=== PATIENT | female | born 1960 | race Caucasian/White ===

== ENCOUNTER 2016-05-06 11:00 | Emergency (ER) | payer MEDICARE ==
[~2016-05-06 11:00] MED LIST: /AUGM875TA OR; ACET65TA OR; ASA OR; FLUC10TA OR; LASI40TA OR; LASI80TA OR; LISI20TA5 OR; MYCOSTATIN TOP; NIFEREX PO; NORCO PO; NYSTATIN OINT TOP; POTA10CA2 OR; VITA100T OR
[2016-05-06] MEDS ORDERED: AUGMENTIN 875 MG TAB As Ordered ONE (12:32)
--- NOTE | 2016-05-06 12:48 | EDDOCDS ---
Nurse's Notes [facility] Name: Katy White Age: 55 yrs Sex: Female : 1960 Arrival Date: 05/06/2016 Time: 11:00 Bed TR7 Private MD: Danette Haider NP Diagnosis: Dental root caries;Essential (primary) hypertension Presentation: 05/06 11:08 Presenting complaint: Patient states: Left jaw pain began two days ago. Adult Sepsis mlb1 Screening: The patient does not have new or worsening altered mentation. Patient's respiratory rate is less than 22. Systolic blood pressure is greater than 100. Patient has a qSOFA score of 0- Negative Sepsis Screen. Suicide/Homicide risk assessment- the patient denies having any suicidal and/or homicidal ideations and does not present with any other emotional, behavioral or mental health complaints. 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 Transition of care: patient was not received from another setting of care. 11:08 Acuity: JESSICA Level 5 mlb1 11:08 Method Of Arrival: Walkin/Carried/Asstd mlb1 Triage Assessment: 11:11 General: Appears in no apparent distress, Behavior is appropriate for age, cooperative. mlb1 Pain: Location: left jaw Pain currently is 2 out of 10 on a pain scale. HIV screening NA for this visit Offered previously. 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 omeprazole 20 mg Oral cpDR 1 cap once daily 2. Vitamin B-12 500 mcg Oral tab daily 3. multivitamin Oral tab 2 tab daily 4. Calcarb 600 With Vitamin D 600 mg(1,500mg) -400 unit Oral tab 5. Vitamin D2 oral oral 1 tab once daily - PMHx: GERD; - PSHx: Tonsillectomy; Cataract Surgery; Gastric Bypass; Hysterectomy; - Social history: Smoking status: Patient states was never smoker of tobacco. No barriers to communication noted, The patient speaks fluent Australian, Speaks appropriately for age. - Family history: Not pertinent. - : The pt / caregiver states he / she is not on anticoagulants. Home medication list is obtained from the patient. - Exposure Risk Screening:: None identified. Screenin:19 Screening information is obtained from the patient. Fall risk: No risks identified. mlb1 Assistance ADL's: requires no assistance with activities of daily living. Abuse/DV Screen: The patient / caregiver reports he/she is: not in a situation that causes fear, pain or injury. Nutritional screening: No deficits noted. Advance Directives: Currently, there is no health care proxy. home support is adequate. Assessment: 12:34 General: Appears obese, Behavior is appropriate for age, cooperative. Pain: Location: mlb1 left jaw Pain currently is 2 out of 10 on a pain scale. Neurological: No deficits noted. Respiratory: No deficits noted. Vital Signs: 11:01 BP 161 / 92; Pulse 67; Resp 20; Temp 96.6(O); Pulse Ox 100% on R/A; Height 4 ft. 11 in. elp (149.86 cm) (R); 12:33 BP 178 / 93 RA Sitting (auto/lg); Pulse 68; Resp 16; Temp 96.9(TE); Pulse Ox 100% on rs6 R/A; Pain 3/10; Vitals: 11:01 Log In Time: May 06, 2016 at 11:00. elp ED Course: 11:01 Patient visited by Nahomi Nicole PCA. elp 11:01 Danette Haider is Private Physician. elp 11:01 Patient moved to Waiting elp 11:03 Patient visited by Nahomi Nicole PCA. elp 11:04 Patient moved to Pre RCE elp 11:08 Patient visited by Dalton Galvan RN. mlb1 11:08 Triage Initiated mlb1 11:12 Patient visited by Dalton Galvan RN. mlb1 11:16 Patient moved to Triage 2 ms18 11:20 [facility] jk8 11:20 Coleen Loo MD is Attending Physician. jk8 11:21 Patient visited by Quan Gonzalez PA-C. jk8 12:20 No procedures done that require assistance. mlb1 12:25 Your, Dentist is Referral Physician. jk8 12:34 Patient visited by Lesly Franklin PCA. rs6 12:34 The patient / caregiver is instructed regarding the plan of care and ED course. mlb1 12:45 Patient moved to TR7 mlb1 12:47 Patient visited by Dalton Galvan RN. mlb1 12:47 No IV's were initiated during this patient's visit. mlb1 Administered Medications: 12:33 Drug: Amoxicillin-Clavulanate 1 tabs [amoxicillin 875 mg-potassium clavulanate 125 mg mlb1 tablet (1 tabs)] Route: PO; Order Results: There are currently no results for this order. Outcome: 12:26 Discharge ordered by Provider. jk8 12:46 Discharge Assessment: Patient awake, alert and oriented x 3. No cognitive and/or mlb1 functional deficits noted. Patient verbalized understanding of disposition instructions. patient administered narcotics - no. The following High Risk Discharge criteria are identified: None. Discharged to home ambulatory. Condition: good. Discharge instructions given to patient, Instructed on discharge instructions, follow up and referral plans. medication usage, Demonstrated understanding of instructions, medications, Pt was receptive of discharge instructions/ teaching. Prescriptions given X 2. No special radiology studies were completed. Property sent home with patient. 12:47 Patient left the ED. mlb1 Signatures: Dalton Galvan RN RN mlb1 Nahomi Nicole, UTILITY ASSEMBLER UTILITY ASSEMBLER Isaura Mcdonough RN RN ms18 Lesly Franklin, UTILITY ASSEMBLER UTILITY ASSEMBLER rs6 Quan Gonzalez, PAKartik PAKartik jk8 MTDD
--- NOTE | 2016-05-06 12:48 | EDDOCDS ---
Physician Documentation [facility] Name: Katy White Age: 55 yrs Sex: Female : 1960 Arrival Date: 05/06/2016 Time: 11:00 Bed TR7 Private MD: Danette Haider NP Disposition: 05/06/16 12:26 Discharged to Home/Self Care. Impression: Dental root caries, Essential (primary) hypertension. - Condition is Stable. - Prescriptions for Augmentin 875- 125 mg Oral Tablet - take 1 tablet by ORAL route every 12 hours for 10 days; 20 tablet. magic mouthwash Mucous Membrane Solution - as directed 237 milliliter by ORAL route 4 times per day As needed Magic mouthwash 237mL, gargle, swish, spit, Malox, Liquid Benedryl, Viscous Lidocaine 1 to 1 to 1 ratio.; 200 milliliter. Hydrochlorothiazide 25 mg Oral Tablet - take 1 tablet by ORAL route once daily .; 30 tablet. - Medication Reconciliation, Local Pharmacy Hours form. - Follow up: Emergency Department; When: As needed; Reason: Worsening of conditions. Follow up: Your, Dentist; When: Call to arrange an appointment; Reason: Recheck today's complaints. - Problem is new. - Symptoms have worsened. Historical: - Allergies: Bactrim; - Home Meds: 1. omeprazole 20 mg Oral cpDR 1 cap once daily 2. Vitamin B-12 500 mcg Oral tab daily 3. multivitamin Oral tab 2 tab daily 4. Calcarb 600 With Vitamin D 600 mg(1,500mg) -400 unit Oral tab 5. Vitamin D2 oral oral 1 tab once daily - PMHx: GERD; - PSHx: Tonsillectomy; Cataract Surgery; Gastric Bypass; Hysterectomy; - Social history: Smoking status: Patient states was never smoker of tobacco. No barriers to communication noted, The patient speaks fluent East Timorese, Speaks appropriately for age. - Family history: Not pertinent. - : The pt / caregiver states he / she is not on anticoagulants. Home medication list is obtained from the patient. - Exposure Risk Screening:: None identified. 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 11 in. elp (149.86 cm) (R); 12:33 BP 178 / 93 RA Sitting (auto/lg); Pulse 68; Resp 16; Temp 96.9(TE); Pulse Ox 100% on rs6 R/A; Pain 3/10; MDM: 12:27 Amoxicillin-Clavulanate 875 mg 1 tabs PO once ordered. jk8 Administered Medications: 12:33 Drug: Amoxicillin-Clavulanate 1 tabs [amoxicillin 875 mg-potassium clavulanate 125 mg mlb1 tablet (1 tabs)] Route: PO; Signatures: Dalton Galvan RN RN mlb1 Quan Gonzalez PA-C PAKartik jk8 MTDD
--- NOTE | 2016-05-08 13:48 | EDDOCDS ---
Physician Documentation [facility] Name: Katy White Age: 55 yrs Sex: Female : 1960 Arrival Date: 05/06/2016 Time: 11:00 Bed TR7 Private MD: Danette Haider NP Disposition: 05/06/16 12:26 Discharged to Home/Self Care. Impression: Dental root caries, Essential (primary) hypertension. - Condition is Stable. - Prescriptions for Augmentin 875- 125 mg Oral Tablet - take 1 tablet by ORAL route every 12 hours for 10 days; 20 tablet. magic mouthwash Mucous Membrane Solution - as directed 237 milliliter by ORAL route 4 times per day As needed Magic mouthwash 237mL, gargle, swish, spit, Malox, Liquid Benedryl, Viscous Lidocaine 1 to 1 to 1 ratio.; 200 milliliter. Hydrochlorothiazide 25 mg Oral Tablet - take 1 tablet by ORAL route once daily .; 30 tablet. - Medication Reconciliation, Local Pharmacy Hours form. - Follow up: Emergency Department; When: As needed; Reason: Worsening of conditions. Follow up: Your, Dentist; When: Call to arrange an appointment; Reason: Recheck today's complaints. - Problem is new. - Symptoms have worsened. Historical: - Allergies: Bactrim; - Home Meds: 1. omeprazole 20 mg Oral cpDR 1 cap once daily 2. Vitamin B-12 500 mcg Oral tab daily 3. multivitamin Oral tab 2 tab daily 4. Calcarb 600 With Vitamin D 600 mg(1,500mg) -400 unit Oral tab 5. Vitamin D2 oral oral 1 tab once daily - PMHx: GERD; - PSHx: Tonsillectomy; Cataract Surgery; Gastric Bypass; Hysterectomy; - Social history: Smoking status: Patient states was never smoker of tobacco. No barriers to communication noted, The patient speaks fluent Macanese, Speaks appropriately for age. - Family history: Not pertinent. - : The pt / caregiver states he / she is not on anticoagulants. Home medication list is obtained from the patient. - Exposure Risk Screening:: None identified. 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 11 in. elp (149.86 cm) (R); 12:33 BP 178 / 93 RA Sitting (auto/lg); Pulse 68; Resp 16; Temp 96.9(TE); Pulse Ox 100% on rs6 R/A; Pain 3/10; MDM: 12:27 Amoxicillin-Clavulanate 875 mg 1 tabs PO once ordered. jk8 13:16 [facility] Payment Agreement was scanned into Copytele and attached to record. mm15 13:17 Financial registration complete. mm15 05/07 08:38 T-Sheet-- Draft Copy was scanned into Copytele and attached to record. [facility] Administered Medications: 05/06 12:33 Drug: Amoxicillin-Clavulanate 1 tabs [amoxicillin 875 mg-potassium clavulanate 125 mg mlb1 tablet (1 tabs)] Route: PO; Signatures: Dalton Galvan RN RN mlb1 Marie Nails mm15 Quan Gonzalez PA-C PA-C jk8 Coleen Brown [facility] The chart was reviewed and I authenticate all verbal orders and agree with the evaluation and treatment provided.Attachments: 13:16 [facility] Payment Agreement mm15 05/07 08:38 T-Sheet-- Draft Copy [facility] Chart Complete MTDD
--- NOTE | 2016-05-08 13:48 | EDDOCDS ---
Physician Documentation [facility] [place] Name: Katy White Age: 55 yrs Sex: Female : 1960 Arrival Date: 05/06/2016 Time: 11:00 Bed TR7 Private MD: Danette Haider NP Disposition: 05/06/16 12:26 Discharged to Home/Self Care. Impression: Dental root caries, Essential (primary) hypertension. - Condition is Stable. - Prescriptions for Augmentin 875- 125 mg Oral Tablet - take 1 tablet by ORAL route every 12 hours for 10 days; 20 tablet. magic mouthwash Mucous Membrane Solution - as directed 237 milliliter by ORAL route 4 times per day As needed Magic mouthwash 237mL, gargle, swish, spit, Malox, Liquid Benedryl, Viscous Lidocaine 1 to 1 to 1 ratio.; 200 milliliter. Hydrochlorothiazide 25 mg Oral Tablet - take 1 tablet by ORAL route once daily .; 30 tablet. - Medication Reconciliation, Local Pharmacy Hours form. - Follow up: Emergency Department; When: As needed; Reason: Worsening of conditions. Follow up: Your, Dentist; When: Call to arrange an appointment; Reason: Recheck today's complaints. - Problem is new. - Symptoms have worsened. Historical: - Allergies: Bactrim; - Home Meds: 1. omeprazole 20 mg Oral cpDR 1 cap once daily 2. Vitamin B-12 500 mcg Oral tab daily 3. multivitamin Oral tab 2 tab daily 4. Calcarb 600 With Vitamin D 600 mg(1,500mg) -400 unit Oral tab 5. Vitamin D2 oral oral 1 tab once daily - PMHx: GERD; - PSHx: Tonsillectomy; Cataract Surgery; Gastric Bypass; Hysterectomy; - Social history: Smoking status: Patient states was never smoker of tobacco. No barriers to communication noted, The patient speaks fluent Wallisian, Speaks appropriately for age. - Family history: Not pertinent. - : The pt / caregiver states he / she is not on anticoagulants. Home medication list is obtained from the patient. - Exposure Risk Screening:: None identified. 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 11 in. elp (149.86 cm) (R); 12:33 BP 178 / 93 RA Sitting (auto/lg); Pulse 68; Resp 16; Temp 96.9(TE); Pulse Ox 100% on rs6 R/A; Pain 3/10; MDM: 12:27 Amoxicillin-Clavulanate 875 mg 1 tabs PO once ordered. jk8 13:16 [facility] Payment Agreement was scanned into 1DayLater and attached to record. mm15 13:17 Financial registration complete. mm15 05/07 08:38 T-Sheet-- Draft Copy was scanned into 1DayLater and attached to record. [facility] Administered Medications: 05/06 12:33 Drug: Amoxicillin-Clavulanate 1 tabs [amoxicillin 875 mg-potassium clavulanate 125 mg mlb1 tablet (1 tabs)] Route: PO; Signatures: Dalton Galvan RN RN mlb1 Marie Nails mm15 Quan Gonzalez PA-C PA-C jk8 Coleen Brown [facility] The chart was reviewed and I authenticate all verbal orders and agree with the evaluation and treatment provided.Attachments: 13:16 [facility] Payment Agreement mm15 05/07 08:38 T-Sheet-- Draft Copy [facility] Chart Complete MTDD
--- NOTE | 2016-05-08 13:48 | EDDOCDS ---
Nurse's Notes [facility] Name: Katy White Age: 55 yrs Sex: Female : 1960 Arrival Date: 05/06/2016 Time: 11:00 Bed TR7 Private MD: Danette Haider NP Diagnosis: Dental root caries;Essential (primary) hypertension Presentation: 05/06 11:08 Presenting complaint: Patient states: Left jaw pain began two days ago. Adult Sepsis mlb1 Screening: The patient does not have new or worsening altered mentation. Patient's respiratory rate is less than 22. Systolic blood pressure is greater than 100. Patient has a qSOFA score of 0- Negative Sepsis Screen. Suicide/Homicide risk assessment- the patient denies having any suicidal and/or homicidal ideations and does not present with any other emotional, behavioral or mental health complaints. 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 Transition of care: patient was not received from another setting of care. 11:08 Acuity: JESSICA Level 5 mlb1 11:08 Method Of Arrival: Walkin/Carried/Asstd mlb1 Triage Assessment: 11:11 General: Appears in no apparent distress, Behavior is appropriate for age, cooperative. mlb1 Pain: Location: left jaw Pain currently is 2 out of 10 on a pain scale. HIV screening NA for this visit Offered previously. 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 omeprazole 20 mg Oral cpDR 1 cap once daily 2. Vitamin B-12 500 mcg Oral tab daily 3. multivitamin Oral tab 2 tab daily 4. Calcarb 600 With Vitamin D 600 mg(1,500mg) -400 unit Oral tab 5. Vitamin D2 oral oral 1 tab once daily - PMHx: GERD; - PSHx: Tonsillectomy; Cataract Surgery; Gastric Bypass; Hysterectomy; - Social history: Smoking status: Patient states was never smoker of tobacco. No barriers to communication noted, The patient speaks fluent Tajik, Speaks appropriately for age. - Family history: Not pertinent. - : The pt / caregiver states he / she is not on anticoagulants. Home medication list is obtained from the patient. - Exposure Risk Screening:: None identified. Screenin:19 Screening information is obtained from the patient. Fall risk: No risks identified. mlb1 Assistance ADL's: requires no assistance with activities of daily living. Abuse/DV Screen: The patient / caregiver reports he/she is: not in a situation that causes fear, pain or injury. Nutritional screening: No deficits noted. Advance Directives: Currently, there is no health care proxy. home support is adequate. Assessment: 12:34 General: Appears obese, Behavior is appropriate for age, cooperative. Pain: Location: mlb1 left jaw Pain currently is 2 out of 10 on a pain scale. Neurological: No deficits noted. Respiratory: No deficits noted. Vital Signs: 11:01 BP 161 / 92; Pulse 67; Resp 20; Temp 96.6(O); Pulse Ox 100% on R/A; Height 4 ft. 11 in. elp (149.86 cm) (R); 12:33 BP 178 / 93 RA Sitting (auto/lg); Pulse 68; Resp 16; Temp 96.9(TE); Pulse Ox 100% on rs6 R/A; Pain 3/10; Vitals: 11:01 Log In Time: May 06, 2016 at 11:00. elp ED Course: 11:01 Patient visited by Nahomi Nicole PCA. elp 11:01 Danette Haider is Private Physician. elp 11:01 Patient moved to Waiting elp 11:03 Patient visited by Nahomi Nicole PCA. elp 11:04 Patient moved to Pre RCE elp 11:08 Patient visited by Dalton Galvan RN. mlb1 11:08 Triage Initiated mlb1 11:12 Patient visited by Dalton Galvan RN. mlb1 11:16 Patient moved to Triage 2 ms18 11:20 Quan Gonzalez [facility]. jk8 11:20 Coleen Loo MD is Attending Physician. jk8 11:21 Patient visited by Quan Gonzalez PA-C. jk8 12:20 No procedures done that require assistance. mlb1 12:25 Your, Dentist is Referral Physician. jk8 12:34 Patient visited by Lesly Franklin PCA. rs6 12:34 The patient / caregiver is instructed regarding the plan of care and ED course. mlb1 12:45 Patient moved to TR7 mlb1 12:47 Patient visited by Dalton Galvan RN. mlb1 12:47 No IV's were initiated during this patient's visit. mlb1 13:16 Patient name changed from Katy\S\L\S\Lagray\S\ to Katy\S\Jeremy\S\Lagray. EDMS 13:16 Patient visited by Marie Nails. mm15 13:16 [facility] Payment Agreement was scanned into Bib + Tuck and attached to record. mm15 05/07 08:38 T-Sheet-- Draft Copy was scanned into Bib + Tuck and attached to record. [facility] Administered Medications: 05/06 12:33 Drug: Amoxicillin-Clavulanate 1 tabs [amoxicillin 875 mg-potassium clavulanate 125 mg mlb1 tablet (1 tabs)] Route: PO; Order Results: There are currently no results for this order. Outcome: 12:26 Discharge ordered by Provider. jk8 12:46 Discharge Assessment: Patient awake, alert and oriented x 3. No cognitive and/or mlb1 functional deficits noted. Patient verbalized understanding of disposition instructions. patient administered narcotics - no. The following High Risk Discharge criteria are identified: None. Discharged to home ambulatory. Condition: good. Discharge instructions given to patient, Instructed on discharge instructions, follow up and referral plans. medication usage, Demonstrated understanding of instructions, medications, Pt was receptive of discharge instructions/ teaching. Prescriptions given X 2. No special radiology studies were completed. Property sent home with patient. 12:47 Patient left the ED. mlb1 Signatures: Dispatcher [facility] Dalton Galvan, MAY RN mlb1 Marie Nails mm15 Nahomi Nicole, PLYWOOD MATCHER PLYWOOD MATCHER Isaura Mcdonough RN RN ms18 Lesly Franklin, PLYWOOD MATCHER PLYWOOD MATCHER rs6 Quan Gonzalez, PAKartik PAColeen Ward Chart Complete MTDD
== END 2016-05-06 12:47 | disposition home or self-care (01) ==
LOC: M ED 11:00
DX: I10 Essential (primary) hypertension (principal); K02.9 Dental caries, unspecified; K21.9 Gastro-esophageal reflux disease without esophagitis; Z98.84 Bariatric surgery status; Z90.79 Acquired absence of other genital organ(s); Z90.89 Acquired absence of other organs; Z79.899 Other long term (current) drug therapy; Z88.1 Allergy status to other antibiotic agents

== ENCOUNTER → 2016-07-12 | Outpatient (REF) | payer MEDICARE ==
[2016-07-12 11:57] LABS: MEAN CORPUSCULAR HGB CONC 31.2 g/dl (32.0-36.5); MEAN CORPUSCULAR VOLUME 92.9 fl (80.0-96.0); RED CELL DISTRIBUTION WIDTH 13.6 % (11.5-14.5); WHITE BLOOD COUNT 6.9 K/mm3 (4.0-10.0)
[2016-07-12 12:19] LABS: ALBUMIN 3.7 GM/DL (3.2-5.2); ALBUMIN/GLOBULIN RATIO 1.09 (1.00-1.93); ALKALINE PHOSPHATASE 107 U/L (45-117); ALT/SGPT 21 U/L (12-78); ANION GAP 7 MEQ/L (8-16); AST/SGOT 19 U/L (15-37); BILIRUBIN,TOTAL 0.4 MG/DL (0.2-1.0); BLOOD UREA NITROGEN 20 MG/DL (7-18); CALCIUM LEVEL 8.9 MG/DL (8.5-10.1); CARBON DIOXIDE LEVEL 30 MEQ/L (21-32); CHLORIDE LEVEL 105 MEQ/L (98-107); CHOLESTEROL LEVEL 162 MG/DL (<200); FERRITIN 115 NG/ML (8-252); GLOMERULAR FILTRATION RATE > 60.0 (>51); GLUCOSE, FASTING 87 MG/DL (70-105); POTASSIUM SERUM 4.5 MEQ/L (3.5-5.1); SODIUM LEVEL 142 MEQ/L (136-145); TOTAL PROTEIN 7.1 GM/DL (6.4-8.2); TRIGLYCERIDES LEVEL 92 MG/DL (<150)
[2016-07-12 12:23] LABS: VITAMIN B12 LEVEL 943 PG/ML
[2016-07-12 12:24] LABS: FOLATE > 24.0 NG/ML
== END ==
LOC: M SFHCPLAZ 09:40
PROVIDERS: ATTEND Nurse Practitioner Family
DX: D64.9 Anemia, unspecified (principal); R03.0 Elevated blood-pressure reading, without diagnosis of hypertension; Z98.890 Other specified postprocedural states; E55.9 Vitamin D deficiency, unspecified; Z79.899 Other long term (current) drug therapy

== ENCOUNTER → 2016-07-24 | Outpatient (CLI) | payer MEDICARE ==
[2016-07-24 11:55] LABS: ANION GAP 6 MEQ/L (8-16); BLOOD UREA NITROGEN 18 MG/DL (7-18); CALCIUM LEVEL 8.6 MG/DL (8.5-10.1); CARBON DIOXIDE LEVEL 31 MEQ/L (21-32); CHLORIDE LEVEL 106 MEQ/L (98-107); CREATININE FOR GFR 0.84 MG/DL (0.55-1.02); GLOMERULAR FILTRATION RATE > 60.0 (>51); GLUCOSE, FASTING 89 MG/DL (70-105); POTASSIUM SERUM 4.4 MEQ/L (3.5-5.1); SODIUM LEVEL 143 MEQ/L (136-145)
== END ==
LOC: M LAB 10:47
PROVIDERS: ATTEND Nurse Practitioner Family
DX: I89.0 Lymphedema, not elsewhere classified (principal)

== ENCOUNTER → 2016-11-01 | Outpatient (REF) | payer MEDICARE ==
[2016-11-01 15:46] LABS: ALBUMIN/GLOBULIN RATIO 1.08 (1.00-1.93); ALKALINE PHOSPHATASE 107 U/L (45-117); ALT/SGPT 28 U/L (12-78); ANION GAP 7 MEQ/L (8-16); AST/SGOT 25 U/L (15-37); BILIRUBIN,TOTAL 0.5 MG/DL (0.2-1.0); BLOOD UREA NITROGEN 14 MG/DL (7-18); CALCIUM LEVEL 9.1 MG/DL (8.5-10.1); CARBON DIOXIDE LEVEL 32 MEQ/L (21-32); CHLORIDE LEVEL 103 MEQ/L (98-107); CREATININE FOR GFR 0.92 MG/DL (0.55-1.02); FREE T4 1.08 NG/DL (0.76-1.46); GLOMERULAR FILTRATION RATE > 60.0 (>51); GLUCOSE, FASTING 83 MG/DL (70-105); POTASSIUM SERUM 4.6 MEQ/L (3.5-5.1); SODIUM LEVEL 142 MEQ/L (136-145); TOTAL PROTEIN 7.7 GM/DL (6.4-8.2)
== END ==
LOC: M SFHCPLAZ 13:13
PROVIDERS: ATTEND Nurse Practitioner Family
DX: I89.0 Lymphedema, not elsewhere classified (principal); Z79.899 Other long term (current) drug therapy

== ENCOUNTER → 2017-03-07 | Outpatient (REF) | payer MEDICARE ==
[2017-03-07 12:08] LABS: ALBUMIN 3.7 GM/DL (3.2-5.2); ALBUMIN/GLOBULIN RATIO 1.09 (1.00-1.93); ALKALINE PHOSPHATASE 92 U/L (45-117); ALT/SGPT 19 U/L (12-78); ANION GAP 7 MEQ/L (8-16); AST/SGOT 19 U/L (7-37); BILIRUBIN,TOTAL 0.3 MG/DL (0.2-1.0); BLOOD UREA NITROGEN 17 MG/DL (7-18); CALCIUM LEVEL 9.2 MG/DL (8.5-10.1); CARBON DIOXIDE LEVEL 30 MEQ/L (21-32); CHLORIDE LEVEL 105 MEQ/L (98-107); GLOMERULAR FILTRATION RATE > 60.0 (>51); GLUCOSE, FASTING 95 MG/DL (70-105); POTASSIUM SERUM 4.3 MEQ/L (3.5-5.1); SODIUM LEVEL 142 MEQ/L (136-145); TOTAL PROTEIN 7.1 GM/DL (6.4-8.2)
== END ==
LOC: M SFHCPLAZ 09:17
PROVIDERS: ATTEND Nurse Practitioner Family
DX: I89.0 Lymphedema, not elsewhere classified (principal); E55.9 Vitamin D deficiency, unspecified

== ENCOUNTER → 2017-09-25 | Outpatient (REF) | payer MEDICARE ==
[2017-09-25 10:40] LABS: TOTAL 25(OH) VITAMIN D 36.5 NG/ML (30.0-100.0)
[2017-09-25 10:51] LABS: ALBUMIN/GLOBULIN RATIO 1.11 (1.00-1.93); ALKALINE PHOSPHATASE 115 U/L (45-117); ALT/SGPT 22 U/L (12-78); ANION GAP 8 MEQ/L (8-16); AST/SGOT 19 U/L (7-37); BILIRUBIN,TOTAL 0.3 MG/DL (0.2-1.0); BLOOD UREA NITROGEN 19 MG/DL (7-18); CALCIUM LEVEL 9.1 MG/DL (8.5-10.1); CARBON DIOXIDE LEVEL 30 MEQ/L (21-32); CHLORIDE LEVEL 106 MEQ/L (98-107); CREATININE FOR GFR 0.94 MG/DL (0.55-1.30); GLOMERULAR FILTRATION RATE > 60.0 (>51); GLUCOSE, FASTING 90 MG/DL (70-100); POTASSIUM SERUM 4.5 MEQ/L (3.5-5.1); SODIUM LEVEL 144 MEQ/L (136-145); TOTAL PROTEIN 7.6 GM/DL (6.4-8.2)
== END ==
LOC: M SFHCPLAZ 08:38
DX: I89.0 Lymphedema, not elsewhere classified (principal); E55.9 Vitamin D deficiency, unspecified
CPT/HCPCS: 80053

== ENCOUNTER → 2018-04-18 | Outpatient (REF) | payer MEDICARE ==
[2018-04-18 11:16] LABS: BLOOD UREA NITROGEN 17 MG/DL (7-18); CALCIUM LEVEL 9.2 MG/DL (8.5-10.1); CARBON DIOXIDE LEVEL 28 MEQ/L (21-32); CHLORIDE LEVEL 107 MEQ/L (98-107); CREATININE FOR GFR 0.94 MG/DL (0.55-1.30); GLOMERULAR FILTRATION RATE > 60.0 (>51); GLUCOSE, FASTING 92 MG/DL (70-100); POTASSIUM SERUM 4.4 MEQ/L (3.5-5.1); SODIUM LEVEL 142 MEQ/L (136-145)
[2018-04-18 11:28] LABS: TOTAL 25(OH) VITAMIN D 45.1 NG/ML (30.0-100.0)
== END ==
LOC: M SFHCPLAZ 08:43
PROVIDERS: ATTEND Nurse Practitioner Family
DX: I89.0 Lymphedema, not elsewhere classified (principal); E55.9 Vitamin D deficiency, unspecified

== ENCOUNTER → 2018-04-26 | Outpatient (REF) | payer MEDICARE ==
[2018-04-26 19:07] LABS: IRON (FE) 41 UG/DL (50-170)
[2018-04-26 19:19] LABS: VITAMIN B12 LEVEL 1083 PG/ML (247-911)
[2018-05-01 08:06] LABS: VITAMIN E(ALPHA TOCOPHEROL) 13.5 mg/L (7.0-25.1)
[2018-05-02 00:07] LABS: VITAMIN A, RETINOL LEVEL 61.6 ug/dL (20.1-62.0); VITAMIN C, ASCORBIC ACID 0.8 mg/dL (0.2-2.0); VITAMIN K1 0.19 ng/mL (0.13-1.88)
== END ==
LOC: M SFHCPLAZ 15:43
PROVIDERS: ATTEND Nurse Practitioner Family
DX: E50.9 Vitamin A deficiency, unspecified (principal); Z98.890 Other specified postprocedural states
CPT/HCPCS: 36415; 82180; 82607; 83540; 84425; 84446; 84590; 84597; 84630; G0463

== ENCOUNTER → 2018-07-11 | Outpatient (REF) | payer MEDICARE ==
[2018-07-11 14:55] LABS: ALBUMIN 3.7 GM/DL (3.2-5.2); ALT/SGPT 25 U/L (12-78); BILIRUBIN,TOTAL 0.4 MG/DL (0.2-1.0); BLOOD UREA NITROGEN 18 MG/DL (7-18); CALCIUM LEVEL 9.3 MG/DL (8.5-10.1); CARBON DIOXIDE LEVEL 33 MEQ/L (21-32); CHLORIDE LEVEL 103 MEQ/L (98-107); CREATININE FOR GFR 0.87 MG/DL (0.55-1.30); GLOMERULAR FILTRATION RATE > 60.0 (>51); GLUCOSE, FASTING 87 MG/DL (70-100); POTASSIUM SERUM 3.9 MEQ/L (3.5-5.1); SODIUM LEVEL 141 MEQ/L (136-145); TOTAL PROTEIN 7.4 GM/DL (6.4-8.2)
[2018-07-11 15:03] LABS: TOTAL 25(OH) VITAMIN D 57.5 NG/ML (30.0-100.0)
[2018-07-11 15:04] LABS: FOLATE > 24.0 NG/ML; VITAMIN B12 LEVEL 1154 PG/ML
== END ==
LOC: M SFHCPLAZ 10:51
PROVIDERS: ATTEND Nurse Practitioner Family
DX: I89.0 Lymphedema, not elsewhere classified (principal); E55.9 Vitamin D deficiency, unspecified; E50.9 Vitamin A deficiency, unspecified

== ENCOUNTER → 2018-07-18 | Outpatient (REF) | payer MEDICARE ==
[2018-07-23 00:08] LABS: VITAMIN A, RETINOL LEVEL 61.6 ug/dL (20.1-62.0); VITAMIN B1 LEVEL WHOLE BLOOD 146.9 nmol/L (66.5-200.0)
== END ==
LOC: M SFHCPLAZ 12:33
PROVIDERS: ATTEND Nurse Practitioner Family
DX: E50.9 Vitamin A deficiency, unspecified (principal); Z98.890 Other specified postprocedural states
CPT/HCPCS: 36415; 84425; 84590; G0463

== ENCOUNTER 2018-07-23 23:49 | Emergency (ER) | payer MEDICARE ==
[~2018-07-23] VITALS: Ht 144.8 cm; Wt 160.4 kg
[2018-07-24 01:42] LABS: BASO % 0.4 % (0.0-1.0); EOS # 0.2 10^3/uL (0.0-0.50); EOS % 1.7 % (0.0-3.0); HEMATOCRIT 34.8 % (36.0-47.0); HEMOGLOBIN 10.6 g/dl (12.0-15.5); LYMPH # 0.8 10^3/uL (1.5-4.5); MEAN CORPUSCULAR HEMOGLOBIN 28.3 pg (27.0-33.0); MEAN CORPUSCULAR HGB CONC 30.5 g/dl (32.0-36.5); MONO # 0.6 10^3/uL (0.0-0.8); MONO % 6.3 % (0.0-5.0); NEUTROPHILS # 7.7 10^3/uL (1.8-7.7); NEUTROPHILS % 82.3 % (36.0-66.0); PLATELET COUNT, AUTOMATED 319 10^3/uL (150-450); RED BLOOD COUNT 3.74 10^6/uL (4.00-5.40); WHITE BLOOD COUNT 9.3 10^3/uL (4.0-10.0)
[2018-07-24 02:17] LABS: ALBUMIN 3.5 GM/DL (3.2-5.2); ALT/SGPT 37 U/L (12-78); BILIRUBIN,TOTAL 0.2 MG/DL (0.2-1.0); BLOOD UREA NITROGEN 22 MG/DL (7-18); CALCIUM LEVEL 8.5 MG/DL (8.5-10.1); CARBON DIOXIDE LEVEL 33 MEQ/L (21-32); CHLORIDE LEVEL 106 MEQ/L (98-107); CREATININE FOR GFR 0.94 MG/DL (0.55-1.30); GLOMERULAR FILTRATION RATE > 60.0 (>51); GLUCOSE, FASTING 118 MG/DL (70-100); POTASSIUM SERUM 4.3 MEQ/L (3.5-5.1); SODIUM LEVEL 143 MEQ/L (136-145); TOTAL PROTEIN 6.8 GM/DL (6.4-8.2)
[2018-07-24] MEDS ORDERED: NS 1,000 ML IV ONE (02:30)
--- NOTE | 2018-07-24 03:21 | REPVR ---
EXAM: CT Head Without Contrast EXAM DATE/TIME: 07/24/2018 2:16 AM CLINICAL HISTORY: 57 years old, female; Signs and symptoms; Dizziness; Additional info: Syncope TECHNIQUE: Imaging protocol: Axial computed tomography images of the head/brain without contrast. Radiation optimization: All CT scans at this facility use at least one of these dose optimization techniques: automated exposure control; mA and/or kV adjustment per patient size (includes targeted exams where dose is matched to clinical indication); or iterative reconstruction. COMPARISON: No relevant prior studies available. FINDINGS: Brain: There are several slightly dense extra-axial nodular lesions which likely reflect meningiomas. There is a rounded area the paramedian left parietal lobe question of a meningioma in the right parietal region. There is focal prominence adjacent to the sagittal sinus posteriorly and at the confluence of the tentorium and posterior falx. Ventricles: Normal. No ventriculomegaly. Bones/joints: Unremarkable. No acute fracture. Sinuses: Mild left maxillary sinus mucosal thickening. Mastoid air cells: Visualized mastoid air cells are unremarkable. No mastoid effusion. Soft tissues: Unremarkable. IMPRESSION: 1. Probable multiple small meningiomas. 2. Mild left maxillary sinus disease. 3. Otherwise negative noncontrast head CT. Electronically signed by: Abram Ahumada On 07/24/2018 03:21:04 AM
[2018-07-24 03:49] LABS: CPK CREATINE PHOSPHOKINASE 61 U/L (26-192); FREE T4 1.18 NG/DL (0.76-1.46); MB/CK RELATIVE INDEX 3.44 (< OR =4); TROPONIN I 0.04 NG/ML (< 0.10)
[2018-07-24] MEDS ORDERED: dexameTHASONE 20 MG/5 ML VIAL (J1100) IV ONE (04:45)
--- NOTE | 2018-07-24 06:44 | ECGEPIP ---
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
[2018-07-24 07:47] VITALS: BP 146/70
--- NOTE | 2018-07-24 07:57 | REP ---
Portable chest x-ray: Single view. History: Syncope. Comparison study: September 15, 2011. Findings: EKG monitoring electrodes overlie the chest. The lungs are well inflated and clear. Right hemidiaphragm is elevated. Heart size is borderline. Pulmonary vasculature is somewhat cephalized. Impression: Elevated right hemidiaphragm. Borderline heart size and pulmonary vascular cephalization. Electronically Signed by Justin Alfaro MD 07/24/2018 07:48 A
== END 2018-07-24 07:52 | disposition short-term general hospital (02) ==
LOC: M ED 23:49
DX: D32.0 Benign neoplasm of cerebral meninges (principal); R55 Syncope and collapse; I45.10 Unspecified right bundle-branch block; Z98.0 Intestinal bypass and anastomosis status; Z86.39 Personal history of other endocrine, nutritional and metabolic disease
CPT/HCPCS: 70450; 71045; 80053; 82550; 82553; 84439; 84443; 84484; 85025; 93005; 96374; 99285; J1100

== ENCOUNTER 2018-09-02 00:02 | Emergency (ER) | payer MEDICARE ==
[~2018-09-02] VITALS: Ht 157.5 cm; Wt 160.4 kg
[2018-09-02] MEDS ORDERED: levETIRAcetam INJection 1,000 MG in D5W 100 ML IV ONE (00:30)
[2018-09-02 00:31] VITALS: BP 133/60
[2018-09-02] MEDS ORDERED: LEVE10003 (00:31)
== END 2018-09-02 01:55 | disposition home or self-care (01) ==
LOC: M ED 00:02
DX: G40.909 Epilepsy, unspecified, not intractable, without status epilepticus (principal); B88.8 Other specified infestations; I10 Essential (primary) hypertension; D64.9 Anemia, unspecified; I89.0 Lymphedema, not elsewhere classified; E66.8 Other obesity; Z79.899 Other long term (current) drug therapy; Z88.2 Allergy status to sulfonamides; Z88.8 Allergy status to other drugs, medicaments and biological substances
CPT/HCPCS: 96374; 99284; J1953

== ENCOUNTER 2018-09-07 11:03 | Emergency (ER) | payer MEDICARE ==
[~2018-09-07] VITALS: Ht 157.5 cm; Wt 160.4 kg
[~2018-09-07 11:03] MED LIST changes: +LEVE10003
[2018-09-07] MEDS ORDERED: VITA500045 (11:24)
[2018-09-07] MEDS ORDERED: VITA80003 (11:24)
[2018-09-07] MEDS ORDERED: OMEP-218 (11:24)
[2018-09-07] MEDS ORDERED: POTA20TA6 (11:24)
[2018-09-07] MEDS ORDERED: LATA0.0015 (11:24)
[2018-09-07 12:02] LABS: BASO % 0.5 % (0.0-1.0); EOS # 0.2 10^3/uL (0.0-0.50); EOS % 2.3 % (0.0-3.0); HEMOGLOBIN 11.8 g/dl (12.0-15.5); LYMPH % 12.9 % (24.0-44.0); MEAN CORPUSCULAR HEMOGLOBIN 29.1 pg (27.0-33.0); MEAN CORPUSCULAR HGB CONC 31.9 g/dl (32.0-36.5); MEAN CORPUSCULAR VOLUME 91.1 fl (80.0-96.0); MONO # 0.6 10^3/uL (0.0-0.8); MONO % 7.9 % (0.0-5.0); NEUTROPHILS % 76.1 % (36.0-66.0); PLATELET COUNT, AUTOMATED 323 10^3/uL (150-450); RED BLOOD COUNT 4.06 10^6/uL (4.00-5.40); WHITE BLOOD COUNT 7.9 10^3/uL (4.0-10.0)
[2018-09-07 12:24] LABS: INR 0.99; PROTHROMBIN TIME 13.2 SECONDS (12.1-14.4)
[2018-09-07 12:25] LABS: PARTIAL THROMBOPLASTIN TIME 30.4 SECONDS (25.4-37.6)
[2018-09-07 12:35] LABS: BLOOD UREA NITROGEN 17 MG/DL (7-18); CALCIUM LEVEL 8.8 MG/DL (8.5-10.1); CARBON DIOXIDE LEVEL 31 MEQ/L (21-32); CHLORIDE LEVEL 106 MEQ/L (98-107); CPK CREATINE PHOSPHOKINASE 60 U/L (26-192); CREATININE FOR GFR 0.92 MG/DL (0.55-1.30); FREE T4 1.09 NG/DL (0.76-1.46); GLOMERULAR FILTRATION RATE > 60.0 (>51); GLUCOSE, FASTING 98 MG/DL (70-100); MAGNESIUM LEVEL 2.5 MG/DL (1.8-2.4); POTASSIUM SERUM 3.7 MEQ/L (3.5-5.1); SODIUM LEVEL 142 MEQ/L (136-145); TROPONIN I 0.04 NG/ML (< 0.10)
--- NOTE | 2018-09-07 12:43 | REP ---
REASON FOR EXAM: Recent seizure activity with known meningiomas. COMPARISON EXAM: Last month on the 3rd. There is no change from the prior exam. Parafalcine densities are noted status quo consistent with meningiomas. Paradural densities particularly at the convexities are again noted and unchanged. No new abnormal parenchymal or paraparenchymal densities have developed. There is no shift of the midline structures. The ventricles and sulci are within normal limits and unchanged. The posterior fossa is within normal limits and unchanged. The imaged paranasal sinuses and mastoid air cells are clear. IMPRESSION: Densities as described above are completely unchanged. Electronically Signed by Tay Ross DO 09/07/2018 01:21 P
--- NOTE | 2018-09-07 13:21 | REP ---
HISTORY: Dizziness. COMPARISON: 07/24/2018, a portable exam. FINDINGS: The technique utilized in obtaining the radiograph has magnified the cardiac silhouette and accentuated the interstitial markings. AP and lateral views were obtained. There is persistent elevation of the diaphragmatic surface of the right lung, status quo. The superior mediastinal structures are midline. The cardiac silhouette is unremarkable in size, shape and position. The diaphragmatic surfaces of the lungs are regular and the costophrenic angles are clear. The pulmonary xiao are clear. The imaged osseous structures are intact. IMPRESSION: There is no acute cardiopulmonary disease. Electronically Signed by Tay Ross DO 09/07/2018 01:22 P
[2018-09-07 14:16] VITALS: BP 127/78
--- NOTE | 2018-09-07 17:57 | ECGEPIP ---
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
== END 2018-09-07 14:29 | disposition home or self-care (01) ==
LOC: EDBD 11:03 → M ED 11:03
DX: R42 Dizziness and giddiness (principal); R56.9 Unspecified convulsions; I10 Essential (primary) hypertension; G47.33 Obstructive sleep apnea (adult) (pediatric); E55.9 Vitamin D deficiency, unspecified; I73.9 Peripheral vascular disease, unspecified; M54.5 Low back pain; E66.9 Obesity, unspecified; Z98.84 Bariatric surgery status; K75.9 Inflammatory liver disease, unspecified; D32.9 Benign neoplasm of meninges, unspecified; H54.7 Unspecified visual loss; Z79.899 Other long term (current) drug therapy; Z88.2 Allergy status to sulfonamides

== ENCOUNTER → 2018-10-04 | Outpatient (CLI) | payer MEDICARE ==
[~2018-10-04] MED LIST changes: +LATA0.0015; +OMEP-218; +POTA20TA6; +VITA500045; +VITA80003
--- NOTE | 2018-10-04 18:49 | REP ---
CAROTID ULTRASOUND: Real-time ultrasound evaluation and duplex Doppler interrogation of the extracranial carotid vasculature is performed. There is mild to moderate plaquing and narrowing in both carotid bulbs extending into the internal and external carotid arteries. Luminal narrowing is less than 50%. There is no evidence of hemodynamically significant stenosis of either internal carotid artery. Normal flow velocities are seen. The vertebral arteries demonstrate normal direction of flow. RIGHT LEFT Peak systolic velocity ICA 63.8 cm/s 112.6 cm/s End diastolic velocity ICA 15.4 cm/s 18.1 cm/s Peak systolic velocity CCA 108.6 cm/s 99.3 cm/s Peak systolic velocity ECA 55.1 cm/s 76.3 cm/s ICA/CCA ratio 0.59 1.13 IMPRESSION: Bilateral luminal narrowing of the internal carotid arteries less than 50%. No evidence of hemodynamically significant stenosis. Electronically Signed by Nadeem James MD 10/04/2018 06:41 P
== END ==
LOC: M RAD 17:27
PROVIDERS: ATTEND Nurse Practitioner Family
DX: R55 Syncope and collapse (principal)

== ENCOUNTER 2018-11-21 15:37 | Observation (INO) | payer MEDICARE ==
[~2018-11-21] VITALS: Ht 157.5 cm; Wt 159.3 kg
[~2018-11-21 15:37] MED LIST changes: -LEVE10003; +LEVE10003 PO; -OMEP-218; +OMEP-218 PO; -POTA20TA6; +POTA20TA6 PO; -VITA500045; +VITA500045 PO; -VITA80003; +VITA80003 PO
[2018-11-21] MEDS ORDERED: NS 1,000 ML IV ONE (16:00)
[2018-11-21 16:06] LABS: BASO # 0.1 10^3/uL (0.0-0.2); BASO % 0.7 % (0.0-1.0); EOS # 0.2 10^3/uL (0.0-0.50); EOS % 1.8 % (0.0-3.0); HEMOGLOBIN 11.9 g/dl (12.0-15.5); LYMPH # 1.2 10^3/uL (1.5-4.5); LYMPH % 13.4 % (24.0-44.0); MEAN CORPUSCULAR HEMOGLOBIN 27.7 pg (27.0-33.0); MEAN CORPUSCULAR HGB CONC 30.5 g/dl (32.0-36.5); MEAN CORPUSCULAR VOLUME 90.7 fl (80.0-96.0); MONO # 0.7 10^3/uL (0.0-0.8); MONO % 7.9 % (0.0-5.0); NEUTROPHILS # 6.9 10^3/uL (1.8-7.7); NEUTROPHILS % 75.9 % (36.0-66.0); PLATELET COUNT, AUTOMATED 300 10^3/uL (150-450)
[2018-11-21 16:25] LABS: INR 1.16; PARTIAL THROMBOPLASTIN TIME 29.4 SECONDS (25.0-38.4); PROTHROMBIN TIME 14.5 SECONDS (11.8-14.0)
--- NOTE | 2018-11-21 16:34 | REP ---
Clinical: Chest pain. Comparison: 09/07/2018. Findings: Stable elevation to the right hemidiaphragm is again noted. Mediastinum and cardiac silhouette are stable. No acute consolidation, effusion, or pneumothorax. Skeletal structures intact. Impression: Stable chest x-ray. No acute cardiopulmonary process. Electronically Signed by Jeanmarie Varela MD 11/21/2018 04:26 P
[2018-11-21 16:43] LABS: CALCIUM LEVEL 8.7 MG/DL (8.5-10.1); CK-MB VALUE MASS 3.7 NG/ML (<3.6); CREATININE FOR GFR 1.06 MG/DL (0.55-1.30); GLOMERULAR FILTRATION RATE 57.1 (>51); MB/CK RELATIVE INDEX 3.3 (< OR =4); POTASSIUM SERUM 4.5 MEQ/L (3.5-5.1); TROPONIN I 0.05 NG/ML (< 0.10)
[2018-11-21] MEDS ORDERED: NYST10CR TOP (16:46)
[2018-11-21] MEDS ORDERED: CALC600T5 PO (16:46)
[2018-11-21] MEDS ORDERED: CYAN100049 PO (16:46)
[2018-11-21] MEDS ORDERED: THIA100T7 PO (16:46)
[2018-11-21] MEDS ORDERED: FURO40TA2 PO (16:46)
[2018-11-21] MEDS ORDERED: ACET-683 PO (16:46)
[2018-11-21] MEDS ORDERED: VITMTA PO (16:46)
[2018-11-21] MEDS ORDERED: D5W/LR 1,000 ML IV ONE (18:45)
--- NOTE | 2018-11-21 19:31 | CR ---
DATE OF CONSULTATION: 11/21/2018 CONSULTATION REPORT FOR: Dr. Jesse Nolasco REASON FOR CONSULTATION: Complete heart block associated with right bundle branch block (RBBB) and recurrent syncope. HISTORY OF PRESENT ILLNESS: Katy White is a 58-year-old woman with known right bundle branch block who has been having recurrent syncope in the past few months. She was having some chest discomfort earlier today and presented to the emergency room. She was found to be in complete heart block with right bundle branch block with rates in the low 30s. She reports she has had recurrent syncope in the past few months but none today. She has recurrent dizziness/lightheadedness. She is quite sedentary. She is not bothered by any dyspnea with her ordinary activities of daily living. She is quite vague with regards to chest discomfort but states it is not present currently. No palpitations. No prior strokes or embolic events. She has recently been diagnosed with meningiomas. No intermittent claudication. No peripheral edema. ADVERSE DRUG REACTIONS: BACTRIM. MEDICATIONS PRIOR TO ADMISSION: - Tylenol - vitamin D - furosemide 40 mg daily - latanoprost 0.005% - Mycostatin three times a day - omeprazole - potassium chloride - vitamin A - vitamin B12 1000 mcg daily - levetiracetam cream OTHER PAST MEDICAL AND SURGICAL HISTORY: 1. Glaucoma. 2. Systemic hypertension. 3. Right bundle branch block. 4. Obstructive sleep apnea on continuous positive airway pressure (CPAP). 5. No diabetes. 6. Gastroesophageal reflux disease (GERD). 7. History of hepatitis with jaundice during childhood. 8. No chronic kidney disease. 9. Meningiomas. 10. Tonsillectomy during childhood. 11. Previous gastric bypass. 12. Hysterectomy. 13. Bilateral cataract extractions with lens implants. FAMILY HISTORY: Noncontributory. SOCIAL HISTORY: Nonsmoker. No alcohol. No psychiatric problems. Disabled. . Resident of [place]. REVIEW OF SYSTEMS: As per history of present illness (HPI) above. No anxiety, panic attacks, or depression. Occasional low back pain. The patient is legally blind. PHYSICAL EXAMINATION: Pleasant, woman who appears her chronologic age, who is not in any respiratory or psychological distress. Morbidly obese. Pulse 29, blood pressure 150/65 right arm supine, oxygen saturation 96% on room air. Temperature 95.9 (oral). Height 62 inches. Weight 158.2 kg, body mass index (BMI) 63.8. Oral mucosa is moist without pallor or cyanosis. No conjunctival pallor, scleral icterus, or xanthomas. Jugular venous pulsations were at 2 cm. Trachea midline. No palpable thyroid. No clubbing, nailbed stenosis or splinter hemorrhages. No skin pallor or icterus. No skin lesions seen. However, the patient is on precautions for a diagnosis of bedbugs. Oriented to person, place and time. Mood and affect are normal. Curvature of the spine normal. Gait was not appropriate to test at this time as the patient is on bedrest awaiting a pacemaker because of complete heart block. Gross motor strength and tone were normal. No abnormal muscle atrophy, fasciculations, or tremors. Respiratory expansion effort was good. No crackles or wheezes. No palpable apex beat. No parasternal lifts, heaves, thrills, or palpable heart sounds. First heart sounds diminished and second heart sounds were diminished and mildly split. No S3, S4 or murmurs appreciated. Carotids were normal in volume and contour and without bruits. No palpable abdominal aorta. No abdominal bruits. Femoral pulses difficult to palpate due to abdominal obesity. Pedal pulses normal. Legs were obese and appear to have lymphedema. No varicose veins. Pedal pulses normal. Abdomen was obese, soft, nontender with normal bowel sounds. Difficult to assess liver span due to abdominal obesity. No hepatosplenomegaly or organomegaly. Stool for occult blood not previously indicated. LABORATORY WORK: 11/21/2018 shows WBC 9.9, hemoglobin 11.9, hematocrit 39.0, platelets 300. PT/INR 1.16. Sodium 143, potassium 4.5, chloride 104, CO2 32, BUN 19, creatinine 1.06, estimated GFR 57.1, glucose 89, CPK 112, CK-MB 3.7, troponin I 0.05. Electrocardiogram 11/21/2018 at 1547 shows sinus rhythm with complete heart block, right bundle branch block, prolonged QTc, low voltages, nonspecific T wave abnormalities. Abnormal ECG. I have independently visualized the patient's portable AP chest x-ray acquired 11/21/2018. Elevation of the right hemidiaphragm. Difficult to assess for cardiomegaly given the portable technique. No pulmonary vascular distribution. No interstitial or alveolar edema. No acute cardiopulmonary process. ASSESSMENT AND PLAN: 1. Complete heart block. The patient is symptomatic with recurrent syncope. She has associated preexisting right bundle branch block. She meets criteria for implantation of a permanent dual-chamber pacemaker. Implantation of dual-chamber pacemaker was explained to the patient. Risks of pacemaker implantation were explained to the patient including, but not all inclusive: Infection (1%), pneumothorax (1%), bleeding, adverse drug reaction, poor wound healing, lead dislodgment, cardiac arrhythmias, and cardiac perforation with cardiac tamponade (06/999). The patient is agreeable and signed the consent form. The plan will be to go to the operating room for implantation of a permanent dual-chamber pacemaker when the operating room (OR) becomes available this evening. The option of no pacemaker was explained to the patient which I explained was not a good option because of risk of recurrent syncope and its consequences including bodily harm as well as increased risk for sudden cardiac . 2. Recurrent syncope. Syncope secondary to complete heart block. As discussed above, she will undergo implantation of a permanent dual-chamber pacemaker. 3. Right bundle branch block (chronic). Her right bundle branch block is now associated with complete heart block. She will undergo permanent pacemaker implantation later tonight. 4. Systemic hypertension. Blood pressure reasonably controlled for her slow heart rate. We will observe in the hospital and medication adjustments will be made as needed. With regards to the patient's other medical problems, she will be admitted under the hospitalist service and they will look after any other medical problems that she has including but not limited to bedbugs, obesity, and obstructive sleep apnea.
[2018-11-21] MEDS ORDERED: CALCIUM CARBONATE 500 MG CHEW U/D PO PRN (21:30)
--- NOTE | 2018-11-21 21:45 | HPEPDOC ---
General Date of Admission 11.21.18 Date of Service: Nov 21, 2018 Chief Complaint The patient is a 58-year-old female admitted with a reason for visit of Complete Heart Block. History of Present Illness 58f hx of rosalie, obesity, gastric bypass, RBBB, meningioma, syncope found to have complete heart block. Pt has had episodes of syncope in the past few months. this has been attributed to meningiomas and possible seizures. today she was at her pmd for a routine visit when she was noted to be severely bradycardic. She denies chest pain or dizziness. Does occasionally get sob with exertion. She has also had an issue with bed bugs. She denies any painful or itchy bites. a full ROS was performed and negative except as above Home Medications Scheduled Calcium Carbonate (Calcium) 600 Mg Tablet, 600 MG PO BID, (Reported) Cyanocobalamin (Vitamin B-12) (Vitamin B-12) 1,000 Mcg Tablet, 1,000 MCG PO Q2D, (Reported) Ergocalciferol (Vitamin D2) (Vitamin D2) 50,000 Unit Capsule, 50,000 UNITS PO Q2WK, (Reported) EVERY OTHER SUNDAY Furosemide (Furosemide) 40 Mg Tablet, 40 MG PO Q2D, (Reported) Furosemide (Furosemide) 40 Mg Tablet, 80 MG PO Q2D, (Reported) Multivitamins (Thera M Plus Tablet) 1 Each Tablet, 1 TAB PO DAILY, (Reported) Omeprazole (Omeprazole) 20 Mg Capsule.dr, 20 MG PO DAILY, (Reported) Potassium Chloride (Potassium Chloride) 20 Meq Tab.er.prt, 20 MEQ PO DAILY, (Reported) Thiamine HCl (Thiamine HCl) 100 Mg Tablet, 100 MG PO Q2D, (Reported) Vitamin A (Vitamin A) 8,000 Unit Capsule, 8,000 UNIT PO Q2D, (Reported) levETIRAcetam (levETIRAcetam) 1,000 Mg Tablet, 1,000 MG PO BID, (Reported) Scheduled PRN Acetaminophen (Acetaminophen) 500 Mg Tablet, 1,000 MG PO Q6H PRN for PAIN, (Reported) Nystatin (Nystatin) 15 Gm Cream..g., 1 APLCT TOP TID PRN for RASH/ITCHING, (Reported) apply to affected area(s) Allergies Coded Allergies: sulfamethoxazole (Verified Allergy, Intermediate, RASH, 09/07/18) trimethoprim (Verified Allergy, Intermediate, RASH, 09/07/18) Past Medical History Medical History ROSALIE Surgical History gastric bypass Social History * Smoker: Denies Alcohol: Denies Drugs: denies A-FIB/CHADSVASC A-FIB History Current/History of A-Fib/PAF?: No Current PO Anticoag Therapy: No Age/Risk Factor Scoring CHADSVASC: CHADSVASC Response (Comments) Value Age Risk Factor Age < 65 years old 0 Gender Risk Factor Female 1 Hx of CHF No 0 Hx of HTN No 0 Hx of Stroke/TIA/or VTE No 0 Hx of Diabetes No 0 Hx of Vascular Disease No 0 Total 1 Treatment Treatment ordered: NONE Reason Anticoagulant not given: Not indicated/[id number] Physical Examination General Exam: Positive: Alert, Cooperative, No Acute Distress Eye Exam: Positive: Other Eye Symptoms Neck Exam: Positive: Supple; Negative: JVD, thyromegaly Chest Exam: Positive: Clear to auscultation, Normal air movement Heart Exam: Positive: Rate Normal, Regular Rhythm, Normal S1, Normal S2; Negative: Murmurs, Rubs Abdomen Exam: Positive: Normal bowel sounds, Soft; Negative: Tenderness, Hepatospenomegaly Extremity Exam: Positive: Normal pulses; Negative: Clubbing, Cyanosis, Edema Skin Exam: Positive: Other skin issue (chronic skin changes) Neuro Exam: Positive: Normal Gait, Normal Speech, Cranial Nerves 3-12 NL, Reflexes 2+ Psych Exam: Positive: Mental status NL, Mood NL, Oriented x 3 Vital Signs Vital Signs Date Time Temp Pulse Resp B/P (MAP) Pulse Ox O2 Delivery O2 Flow Rate FiO2 11/21/18 21:06 31 93 11/21/18 21:00 182/72 (108) 11/21/18 20:30 18 11/21/18 18:45 Room Air 11/21/18 16:16 95.9 Laboratory Data Labs 24H Laboratory Tests 2 11/21/18 15:49: Immature Granulocyte % (Auto) 0.3, White Blood Count 9.0, Red Blood Count 4.30, Hemoglobin 11.9L, Hematocrit 39.0, Mean Corpuscular Volume 90.7, Mean Corpuscular Hemoglobin 27.7, Mean Corpuscular Hemoglobin Concent 30.5L, Red Cell Distribution Width 16.1H, Platelet Count 300, Neutrophils (%) (Auto) 75.9H, Lymphocytes (%) (Auto) 13.4L, Monocytes (%) (Auto) 7.9H, Eosinophils (%) (Auto) 1.8, Basophils (%) (Auto) 0.7, Neutrophils # (Auto) 6.9, Lymphocytes # (Auto) 1.2L, Monocytes # (Auto) 0.7, Eosinophils # (Auto) 0.2, Basophils # (Auto) 0.1, Nucleated Red Blood Cells % (auto) 0.0, Prothrombin Time 14.5H, Prothromb Time International Ratio 1.16, Activated Partial Thromboplast Time 29.4, Anion Gap 7L, Glomerular Filtration Rate 57.1, Blood Urea Nitrogen 19H, Creatinine 1.06, Sodium Level 143, Potassium Level 4.5, Chloride Level 104, Carbon Dioxide Level 32, Calcium Level 8.7, Total Creatine Kinase 112, Creatine Kinase MB 3.7H, Creatine Kinase MB Relative Index 3.30, Troponin I 0.05 CBC/BMP Laboratory Tests 11/21/18 15:49 Red Blood Count 4.30, Mean Corpuscular Volume 90.7, Mean Corpuscular Hemoglobin 27.7, Mean Corpuscular Hemoglobin Concent 30.5 L, Red Cell Distribution Width 16.1 H, Neutrophils (%) (Auto) 75.9 H, Lymphocytes (%) (Auto) 13.4 L, Monocytes (%) (Auto) 7.9 H, Eosinophils (%) (Auto) 1.8, Basophils (%) (Auto) 0.7, Neutrophils # (Auto) 6.9, Lymphocytes # (Auto) 1.2 L, Monocytes # (Auto) 0.7, Eosinophils # (Auto) 0.2, Basophils # (Auto) 0.1, Calcium Level 8.7, Total Creatine Kinase 112 Assessment/Plan 58f p/w complete heart block for ppm tonight will admit tentatively to icu dvt proph on hold due to anticipated procedure plan pending procedure and cardio input rosalie continue cpap possible seizures continue keppra Plan / VTE VTE Prophylaxis Ordered?: Yes VTE Exclusion Mechanical Proph: N/A:VTE Prophy Ordered VTE Exclusion Pharmacological: Other SHANE FAULKNER MD Nov 21, 2018 21:45
[2018-11-21] MEDS ORDERED: ceFAZolin 2 GM/D5W 50 ML IV BAG (J0690 PER 500MG) As Ordered ONE (22:13)
[2018-11-21] MEDS ORDERED: LIDOCAINE 1% SDV INJ 30 ML VIAL As Ordered ONE (22:13)
[2018-11-21] MEDS ORDERED: ISOVUE-300 61% 50ML VIAL (Q9967) As Ordered ONE ×2 (22:13→23:24)
[2018-11-21] MEDS ORDERED: fentaNYL 100 MCG/2 ML INJECTION (J3010) As Ordered ONE (22:55)
[2018-11-21] MEDS ORDERED: MIDAZOLAM INJ 2 MG/2 ML VIAL (J2250) As Ordered ONE (22:55)
[2018-11-21] MEDS ORDERED: ONDANSETRON 4MG/2ML VIAL (J2405) As Ordered ONE (22:55)
[2018-11-21] MEDS ORDERED: PROPOFOL 200 MG/20 ML VIAL As Ordered ONE (22:55)
[2018-11-21] MEDS ORDERED: LIDOCAINE 2% INJ 100 MG/5 ML SDV (FOR ANES.) As Ordered ONE (22:55)
[2018-11-22] VITALS (11 sets, daily range): BP systolic 100–175; BP diastolic 55–83
[2018-11-22] MEDS ORDERED: ceFAZolin 1GM INJ (J0690 PER 500MG) As Ordered ONE (00:18)
[2018-11-22] MEDS ORDERED: PROPOFOL 200 MG/20 ML VIAL As Ordered ONE ×2 (01:14→01:51)
[2018-11-22] MEDS ORDERED: MUPIROCIN 2% OINT 22 GM TUBE As Ordered ONE (02:00)
[2018-11-22] MEDS ORDERED: ONDANSETRON 4MG/2ML VIAL (J2405) IV PRN (02:45)
[2018-11-22] MEDS ORDERED: LR 1,000 ML IV SCH (02:45)
[2018-11-22] MEDS ORDERED: fentaNYL 100 MCG/2 ML INJECTION (J3010) IV PRN (02:45)
[2018-11-22] MEDS ORDERED: PERCOCET 5MG/325MG TAB PO PRN (02:45)
[2018-11-22] MEDS: levETIRAcetam 250MG TABLET (KEPPRA) PO SCH ×3 (03:37→19:33)
[2018-11-22 04:45] LABS: HEMATOCRIT 35.3 % (36.0-47.0); HEMOGLOBIN 10.6 g/dl (12.0-15.5); MEAN CORPUSCULAR HEMOGLOBIN 27.5 pg (27.0-33.0); MEAN CORPUSCULAR VOLUME 91.7 fl (80.0-96.0); PLATELET COUNT, AUTOMATED 247 10^3/uL (150-450); RED BLOOD COUNT 3.85 10^6/uL (4.00-5.40); WHITE BLOOD COUNT 8.8 10^3/uL (4.0-10.0)
[2018-11-22 05:16] LABS: BLOOD UREA NITROGEN 16 MG/DL (7-18); CARBON DIOXIDE LEVEL 30 MEQ/L (21-32); CHLORIDE LEVEL 106 MEQ/L (98-107); CREATININE FOR GFR 0.92 MG/DL (0.55-1.30); GLOMERULAR FILTRATION RATE > 60.0 (>51); GLUCOSE, FASTING 91 MG/DL (70-100); POTASSIUM SERUM 3.9 MEQ/L (3.5-5.1); SODIUM LEVEL 144 MEQ/L (136-145)
--- NOTE | 2018-11-22 07:46 | REP ---
Clinical: Postoperative assessment. Pacemaker placement. . Comparison: 11/21/2018. Findings: Examination is limited by portable technique and underpenetration. Single lead pacemaker with tip in the right ventricle. No obvious focal consolidation. No pneumothorax. Impression: Status post pacemaker placement. No obvious acute infiltrate. Electronically Signed by Jeanmarie Varela MD 11/22/2018 07:38 A
[2018-11-22] MEDS: ASCORBIC ACID 250 MG TAB PO SCH ×2 (08:19→19:33)
[2018-11-22] MEDS: OMEPRAZOLE 20 MG CAP PO SCH (08:19)
[2018-11-22] MEDS: MULTIVITAMINS/MINERALS THERAP 1 TAB PO SCH (08:20)
--- NOTE | 2018-11-22 08:30 | REP ---
Clinical: Status post pacemaker Comparison: 11/21/2018. Findings: The mediastinum and cardiac silhouette are stable and within normal limits for portable technique. Pacer in right ventricle. The lung xiao are clear without acute consolidation, effusion, or pneumothorax. Skeletal structures are intact. Impression: No acute cardiopulmonary process appreciated. Electronically Signed by Jeanmarie Varela MD 11/22/2018 08:22 A
--- NOTE | 2018-11-22 08:45 | ECGEPIP ---
[facility] Test Date: 2018-11-22 Pat Name: JUAN GARRISON Department: Room: [place] [address] Gender: Female Sort Manager: PLACIDO : [id number] Requested By: Trey Jung Order Number: [id number] Reading MD: Trey Livingston Measurements Intervals [place] Rate: 69 P: [place]: 0 QRS: -58 QRSD: 171 T: 94 QT: 493 QTc: 532 Interpretive Statements ELECTRONIC VENTRICULAR PACEMAKER Previous tracing done 11-21-18 appears to be third degree heart block Electronically Signed on 11-22-2018 8:45:43 EDT by Trey Livingston
[2018-11-22] MEDS ORDERED: FUROSEMIDE 40 MG TAB PO SCH (09:00)
[2018-11-22] MEDS ORDERED: CYANOCOBALAMIN 500 MCG TAB PO SCH (09:00)
[2018-11-22] MEDS ORDERED: THIAMINE 100 MG TAB PO SCH (09:00)
--- NOTE | 2018-11-22 09:46 | RO ---
DATE OF PROCEDURE: Operation began in the late evening 11/21/2018 and finished in the radio rigger hours of 11/22/2018. PREPROCEDURE DIAGNOSIS: Complete heart block. POSTPROCEDURE DIAGNOSIS: Complete heart block. FINDINGS: Complete heart block. Intraoperatively, the patient was observed to have intermittent episodes of asystole for which she required a transthoracic pacing until the permanent pacemaker was in place. PROCEDURE: Implantation of a single chamber pacemaker. SURGEON: Dr. Trey Jung. SMOG TECHNICIAN: None. ANESTHESIA: Lidocaine 1% local/monitored anesthetic care. SPECIMENS: None. ESTIMATED BLOOD LOSS: 450 mL BLOOD PRODUCTS: No blood products replaced. DRAINS: No complications. DESCRIPTION OF PROCEDURE: In the process of the implantation procedure multiple left subclavian vein venograms were performed to get venous access in real-time with the access needle. All total, the total amount of contrast given IV via a left antecubital vein was 85 mL. Multiple attempts were made to get the vein access at the level of the skin but percutaneous technique and these were unsuccessful despite use of multiple subclavian venograms. I therefore, decided to attempt to get vein access at the level of the pectoris muscle by first making my pacemaker pocket. An incision was made with a Peak PlasmaBlade of approximately 3-1/2 inches in length and the Peak PlasmaBlade was used to dissect down to and through the fibers of the Shahla fascia. Blunt dissection using two fingers was used to form the pacemaker pocket. I was successful getting into the left subclavian vein at the level of the pectoral using a micropuncture needle and I then attempted to do guidewire exchange for a guidewire that came with the standard 9.5-Zimbabwean sheath. The soft plastic sheath that came with the micropuncture kit kinked and I could not pass the guidewire. I then made multiple attempts at vein access at the level of the pectoral muscle using the standard needle that came with the 10.5-Zimbabwean sheath. I was able to get the guidewire down. I then placed the 10.5-Zimbabwean sheath with introducer over the guidewire. The introducer was removed leaving the 10-Zimbabwean sheath in place. A second guidewire was placed along side the first guidewire using a sheared-guidewire technique. The 10-Zimbabwean sheath was then removed and then the 10-Zimbabwean with introducer was placed over one of the two guidewires. The introducer was removed and the 10-Zimbabwean sheath was removed. I then took an 8-Zimbabwean sheath with introducer and placed it over one of the two guidewires advanced into the vein. This was used for vein access for the right ventricle lead. The right ventricle lead was placed into the vicinity of the right ventricle apex where it was secured with a total of 10 turns. This position was noted to be electrically and anatomically satisfactory. The 8-Zimbabwean sheath was then broken apart and removed. Then attention was turned to the atrial lead. The first standard 8-Zimbabwean sheath that was used over the other guidewire for right atrial lead access became kinked. I was eventually able to get the guidewire across the sheath. The 8-Zimbabwean sheath was removed. I then used a long 9-Zimbabwean sheath and again, this became kinked and would not allow passage of the pacing lead. I was able to get a Glidewire across the kink in the 9-Zimbabwean sheath. I then guidewire exchanged for a 10.5-Zimbabwean long sheath and placed this into the left subclavian vein. When I went to place the atrial lead through the 10.5-Zimbabwean sheath, even with a retained Glidewire, the sheath was kinked and I could not pass the atrial lead successfully. I then removed the 10-Zimbabwean sheath and decided to obtain a separate new vein access at the level of the pectoral muscle using fluoroscopic guidance and using assistance of more left subclavian venograms. In the process of getting back into the subclavian vein, I used 6-inch epidural needle, 17-gauge and had difficulty getting in. I then switched to the standard needle that came with the 8-Zimbabwean sheath and was successful getting back into the vein. The guidewire was placed. The 8-Zimbabwean sheath was then placed into the vein. I then tried to introduce the atrial lead again and was unsuccessful as the sheath had become kinked again. All of the kink problems I had with the sheath appeared to be very close to the overlap of the 1st rib and clavicle. Earlier in the procedure, I also had used the epidural 6-inch, 17-gauge sheath to gain the original vein access for the very first sheath that was placed. Due to the severe difficulty with recurrent kinking of sheaths, and having gone through multiple different-size Zimbabwean sheaths and having done multiple vein sticks and numerous left subclavian venograms, I decided that it was unwise to continue to persist attempts at getting atrial lead placement. I therefore, made the decision to make this a single chamber pacemaker rather than dual-chamber pacemaker and abandoned further attempts at getting an atrial lead placed. The ventricle lead was secured the first time using this tie-down sleeve using two individual sutures consisting of 0 Vicryl. In the process of trying to get vein access and working with multiple sheaths, the ventricle lead had pulled back a bit within the pocket and I lost some slack. I therefore, cut the sutures and removed the sutures holding down the tie-down sleeve and then repositioned the sleeve and then secured it again with two individual 0 Ethibond sutures to secure to the pectoral muscle. I took a medium sized TYRX and microbial envelope and cut it into six pieces, which were placed into the floor of the pacemaker pocket. The internal pin of the ventricle lead was placed into the head of the pacemaker pulse generator and secured with the hex screwdriver to tightened the set screw. The excess lead material was coiled under the pacemaker pulse generated and placed along with the pacemaker pulsed generator into the pacemaker pocket. The previously placed 0 Ethibond suture attached to the pectoral muscle was then used to secure the pacemaker pulse generator. The deep layer was closed using individual sutures consisting of #2-0 Vicryl. A more superficial layer was closed using individual sutures consisting of #2-0 Vicryl. The skin was closed using zackary. The patient tolerated the procedure without any immediate complications. Overall, this pacemaker implant was more than 200% more difficult than usual. The pacemaker pulse generator implant was a [employer] Assurity MRI, model number [id number] with serial number [id number]. The right ventricle lead implanted was a [employer] Tendril MRI with model number [id number], which was 68 cm in length. It had serial number [id number]. The atrial lead that was abandoned and was not implanted was a [employer] model [id number], 52 cm in length with serial number [id number]. The TYRX pouch that was placed was reference number [id number] with lot number [id number].
--- NOTE | 2018-11-22 10:30 | REP ---
Chest: Six views. History: Intra procedural imaging. Dual-chamber maddi pacemaker. 33 minutes 9 seconds of fluoroscopy time is reported. Findings: A sequence of six last image hold fluoroscopically obtained spot radiographs of the chest document a single lead pacemaker lead position. Electronically Signed by Justin Alfaro MD 11/22/2018 10:21 A
[2018-11-22] MEDS: ACETAMINOPHEN 500 MG TAB PO PRN (17:05)
--- NOTE | 2018-11-22 19:21 | IPNPDOC ---
Subjective Date Seen The patient was seen on 11/22/18. Subjective Chief Complaint/HPI 58f hx of rosalie, obesity, gastric bypass, RBBB, meningioma, bedbugs, blind, syncope found to have complete heart block. PPM was placed last night. no complaints currently full ros was performed and negative except as above Objective Physical Examination General Exam: Positive: Alert, Cooperative, No Acute Distress Eye Exam: Positive: Other Eye Symptoms Neck Exam: Positive: Supple; Negative: JVD, thyromegaly Chest Exam: Positive: Clear to auscultation, Normal air movement Heart Exam: Positive: Rate Normal, Regular Rhythm, Normal S1, Normal S2; Negative: Murmurs, Rubs Abdomen Exam: Positive: Normal bowel sounds, Soft; Negative: Tenderness, Hepatospenomegaly Extremity Exam: Positive: Normal pulses; Negative: Clubbing, Cyanosis, Edema Skin Exam: Positive: Other skin issue (chronic skin changes) Neuro Exam: Positive: Normal Gait, Normal Speech, Cranial Nerves 3-12 NL, Reflexes 2+ Psych Exam: Positive: Mental status NL, Mood NL, Oriented x 3 Assessment /Plan Assessment 58f p/w complete heart block s/p ppm plan pending cardio input rosalie continue cpap possible seizures continue keppra Plan/VTE VTE Prophylaxis Ordered?: Yes VTE Exclusion Mechanical Proph: N/A:VTE Prophy Ordered VTE Exclusion Pharmacological: Other VS, I&O, 24H, Fishbone Vital Signs/I&O Vital Signs Date Time Temp Pulse Resp B/P (MAP) Pulse Ox O2 Delivery O2 Flow Rate FiO2 11/22/18 18:00 97.3 60 19 140/60 (86) 97 2.0 11/21/18 18:45 Room Air I&O- Last 24 Hours up to 6 AM 11/22/18 06:00 Intake Total 100 ml Output Total 150 ml Balance -50 ml Laboratory Data 24H LABS Laboratory Tests 2 11/22/18 04:32: Nucleated Red Blood Cells % (auto) 0.0, Anion Gap 8, Glomerular Filtration Rate > 60.0, Blood Urea Nitrogen 16, Creatinine 0.92, Sodium Level 144, Potassium Level 3.9, Chloride Level 106, Carbon Dioxide Level 30, Calcium Level 8.0L CBC/BMP Laboratory Tests 11/22/18 04:32 Red Blood Count 3.85 L, Mean Corpuscular Volume 91.7, Mean Corpuscular Hemoglobin 27.5, Mean Corpuscular Hemoglobin Concent 30.0 L, Red Cell Distribution Width 16.3 H, Calcium Level 8.0 L SHANE FAULKNER MD Nov 22, 2018 19:21
--- NOTE | 2018-11-22 21:55 | ECGEPIP ---
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
[2018-11-23 04:00] VITALS: BP 149/68
[2018-11-23 08:00] VITALS: BP 137/75
[2018-11-23] MEDS: levETIRAcetam 250MG TABLET (KEPPRA) PO SCH (08:02)
[2018-11-23] MEDS: MULTIVITAMINS/MINERALS THERAP 1 TAB PO SCH (08:03)
[2018-11-23] MEDS: ASCORBIC ACID 250 MG TAB PO SCH (08:03)
[2018-11-23] MEDS: OMEPRAZOLE 20 MG CAP PO SCH (08:03)
[2018-11-23] MEDS: ACETAMINOPHEN 500 MG TAB PO PRN (08:04)
[2018-11-23] MEDS ORDERED: FUROSEMIDE 40 MG TAB PO SCH (09:00)
[2018-11-23 09:01] LABS: HEMATOCRIT 38.5 % (36.0-47.0); HEMOGLOBIN 11.7 g/dl (12.0-15.5); MEAN CORPUSCULAR HEMOGLOBIN 27.6 pg (27.0-33.0); MEAN CORPUSCULAR HGB CONC 30.4 g/dl (32.0-36.5); MEAN CORPUSCULAR VOLUME 90.8 fl (80.0-96.0); PLATELET COUNT, AUTOMATED 301 10^3/uL (150-450); RED BLOOD COUNT 4.24 10^6/uL (4.00-5.40); WHITE BLOOD COUNT 9.3 10^3/uL (4.0-10.0)
[2018-11-23 09:21] LABS: BLOOD UREA NITROGEN 12 MG/DL (7-18); CALCIUM LEVEL 8.6 MG/DL (8.5-10.1); CARBON DIOXIDE LEVEL 31 MEQ/L (21-32); CHLORIDE LEVEL 106 MEQ/L (98-107); CREATININE FOR GFR 0.87 MG/DL (0.55-1.30); GLOMERULAR FILTRATION RATE > 60.0 (>51); GLUCOSE, FASTING 148 MG/DL (70-100); POTASSIUM SERUM 3.5 MEQ/L (3.5-5.1); SODIUM LEVEL 142 MEQ/L (136-145)
[2018-11-23 11:50] VITALS: BP 140/81
--- NOTE | 2018-11-26 20:04 | DS.PDOC ---
Discharge Summary General Date of Admission Nov 22, 2018 at 01:40 Date of Discharge 11.23.18 Discharge Summary PROCEDURES PERFORMED DURING STAY: [None]. ADMITTING DIAGNOSES: complete heart block DISCHARGE DIAGNOSES: complete heart block COMPLICATIONS/CHIEF COMPLAINT: Complete Heart Block. HISTORY OF PRESENT ILLNESS: 58f hx of rosalie, obesity, gastric bypass, RBBB, meningioma, syncope found to have complete heart block. Pt has had episodes of syncope in the past few months. this has been attributed to meningiomas and possible seizures. today she was at her pmd for a routine visit when she was noted to be severely bradycardic. She denies chest pain or dizziness. Does oc casionally get sob with exertion. She has also had an issue with bed bugs. She denies any painful or itchy bites. HOSPITAL COURSE: Pt was admitted to the hospitalist service. She was seen by cardiology and a pacemaker was placed. She was doing well afterwards and discharged home with follow up. DISCHARGE MEDICATIONS: Please see below. ALLERGIES: Please see below. PHYSICAL EXAMINATION ON DISCHARGE: General Exam: Positive: Alert, Cooperative, No Acute Distress Eye Exam: Positive: Other Eye Symptoms Neck Exam: Positive: Supple; Negative: JVD, thyromegaly Chest Exam: Positive: Clear to auscultation, Normal air movement Heart Exam: Positive: Rate Normal, Regular Rhythm, Normal S1, Normal S2; Negative: Murmurs, Rubs Abdomen Exam: Positive: Normal bowel sounds, Soft; Negative: Tenderness, Hepatospenomegaly Extremity Exam: Positive: Normal pulses; Negative: Clubbing, Cyanosis, Edema Skin Exam: Positive: Other skin issue (chronic skin changes) Neuro Exam: Positive: Normal Gait, Normal Speech, Cranial Nerves 3-12 NL, Reflexes 2+ Psych Exam: Positive: Mental status NL, Mood NL, Oriented x 3 LABORATORY DATA: Please see below. ACTIVITY: [As tolerated]. DIET: cardiac DISCHARGE PLAN: f/u with cardiology DISPOSITION: Home Health Service. DISCHARGE CONDITION: [Stable]. Vital Signs/I&Os Vital Signs Date Time Temp Pulse Resp B/P (MAP) Pulse Ox O2 Delivery O2 Flow Rate FiO2 11/23/18 11:50 98.1 70 18 140/81 (100) 96 2.0 11/21/18 18:45 Room Air Discharge Medications Scheduled Calcium Carbonate (Calcium) 600 Mg Tablet, 600 MG PO BID, (Reported) Cyanocobalamin (Vitamin B-12) (Vitamin B-12) 1,000 Mcg Tablet, 1,000 MCG PO Q2D, (Reported) Ergocalciferol (Vitamin D2) (Vitamin D2) 50,000 Unit Capsule, 50,000 UNITS PO Q2WK, (Reported) EVERY OTHER SUNDAY Furosemide (Furosemide) 40 Mg Tablet, 40 MG PO Q2D, (Reported) Furosemide (Furosemide) 40 Mg Tablet, 80 MG PO Q2D, (Reported) Multivitamins (Thera M Plus Tablet) 1 Each Tablet, 1 TAB PO DAILY, (Reported) Omeprazole (Omeprazole) 20 Mg Capsule.dr, 20 MG PO DAILY, (Reported) Potassium Chloride (Potassium Chloride) 20 Meq Tab.er.prt, 20 MEQ PO DAILY, (Reported) Thiamine HCl (Thiamine HCl) 100 Mg Tablet, 100 MG PO Q2D, (Reported) Vitamin A (Vitamin A) 8,000 Unit Capsule, 8,000 UNIT PO Q2D, (Reported) levETIRAcetam (levETIRAcetam) 1,000 Mg Tablet, 1,000 MG PO BID, (Reported) Scheduled PRN Acetaminophen (Acetaminophen) 500 Mg Tablet, 1,000 MG PO Q6H PRN for PAIN, (Reported) Nystatin (Nystatin) 15 Gm Cream..g., 1 APLCT TOP TID PRN for RASH/ITCHING, (Reported) apply to affected area(s) Allergies Coded Allergies: sulfamethoxazole (Verified Allergy, Intermediate, RASH, 09/07/18) trimethoprim (Verified Allergy, Intermediate, RASH, 09/07/18) SHANE FAULKNER MD Nov 26, 2018 20:04
== END 2018-11-23 15:27 | disposition home health service (06) ==
LOC: M ED 15:37 → M SDC 15:38 → M ED INP 11-22 01:40 → M PCU 11-22 02:55
PROVIDERS: ADMIT Internal Medicine Cardiovascular Disease; ATTEND Internal Medicine Cardiovascular Disease
DX: I44.2 Atrioventricular block, complete (principal); I45.10 Unspecified right bundle-branch block; R00.1 Bradycardia, unspecified; R55 Syncope and collapse; R06.02 Shortness of breath; I10 Essential (primary) hypertension; R56.9 Unspecified convulsions; G47.33 Obstructive sleep apnea (adult) (pediatric); E66.9 Obesity, unspecified; Z68.44 Body mass index [BMI] 60.0-69.9, adult; D32.9 Benign neoplasm of meninges, unspecified; K21.9 Gastro-esophageal reflux disease without esophagitis; H40.9 Unspecified glaucoma; Z98.49 Cataract extraction status, unspecified eye; Z96.1 Presence of intraocular lens; Z79.899 Other long term (current) drug therapy; Z88.2 Allergy status to sulfonamides; Z98.84 Bariatric surgery status
CPT/HCPCS: 33207; 36415; 71045; 76000; 80048; 82550; 82553; 84484; 85025; 85027; 85610; 85730; 86850; 86900; 86901; 93005; 93041; 94760; 99285; C1769; C1786; C1898; G0378; J0690; J2250; J2405; J3010; Q9967

== ENCOUNTER 2018-12-09 06:23 | Emergency (ER) | payer MEDICARE ==
[~2018-12-09 06:23] MED LIST changes: +ACET-683 PO; +CALC600T5 PO; +CYAN100049 PO; +FURO40TA2 PO; +NYST10CR TOP; +THIA100T7 PO; +VITMTA PO
--- NOTE | 2018-12-09 09:00 | REP ---
Right lower extremity deep vein duplex ultrasound: The deep veins demonstrate normal compression, normal Doppler color flow and normal Doppler waveforms with respiration and augmentation from the popliteal vein to the common femoral vein. Impression: There is no right lower extremity deep vein thrombus. Electronically Signed by Nadeem Whipple MD 12/09/2018 08:52 A
[2018-12-09 10:44] VITALS: BP 145/73
== END 2018-12-09 10:53 | disposition home or self-care (01) ==
LOC: M ED 06:23
DX: R22.41 Localized swelling, mass and lump, right lower limb (principal); I10 Essential (primary) hypertension; L85.1 Acquired keratosis [keratoderma] palmaris et plantaris; Z86.79 Personal history of other diseases of the circulatory system; H54.8 Legal blindness, as defined in USA; M17.0 Bilateral primary osteoarthritis of knee; Z79.899 Other long term (current) drug therapy; Z88.2 Allergy status to sulfonamides; Z88.1 Allergy status to other antibiotic agents

== ENCOUNTER → 2019-06-18 | Outpatient (REF) | payer MEDICARE ==
[2019-06-18 13:42] LABS: ALBUMIN 4.1 GM/DL (3.2-5.2); ALT/SGPT 17 U/L (12-78); BILIRUBIN,TOTAL 0.3 MG/DL (0.2-1.0); BLOOD UREA NITROGEN 16 MG/DL (7-18); CALCIUM LEVEL 9.1 MG/DL (8.5-10.1); CARBON DIOXIDE LEVEL 33 MEQ/L (21-32); CHLORIDE LEVEL 104 MEQ/L (98-107); CREATININE FOR GFR 0.94 MG/DL (0.55-1.30); GLOMERULAR FILTRATION RATE > 60.0 (>51); GLUCOSE, FASTING 99 MG/DL (70-100); POTASSIUM SERUM 4.1 MEQ/L (3.5-5.1); SODIUM LEVEL 141 MEQ/L (136-145); TOTAL PROTEIN 7.6 GM/DL (6.4-8.2)
[2019-06-18 13:49] LABS: TOTAL 25(OH) VITAMIN D 74.5 NG/ML (30.0-100.0)
== END ==
LOC: M SFHCPLAZ 11:23
PROVIDERS: ATTEND Nurse Practitioner Family
DX: N18.3 Chronic kidney disease, stage 3 (moderate) (principal); E55.9 Vitamin D deficiency, unspecified; E50.9 Vitamin A deficiency, unspecified
CPT/HCPCS: 36415; 80053; 82306; 84590; 90682; G0008; G0463

== ENCOUNTER → 2020-04-21 | Outpatient (CLI) | payer MEDICARE, OTHER ==
[~2020-04-21] MED LIST changes: -CALC600T5 PO; +CALC600T61 PO; +ISOVUE-370 76% 100ML VIAL As Ordered ONE
--- NOTE | 2020-04-21 17:39 | REPVR ---
PROCEDURE INFORMATION: Exam: CT Head Without And With Contrast Exam date and time: 04/21/2020 4:36 PM Age: 59 years old Clinical indication: Other: Meningeomas TECHNIQUE: Imaging protocol: Computed tomography of the head without and with intravenous contrast. Radiation optimization: All CT scans at this facility use at least one of these dose optimization techniques: automated exposure control; mA and/or kV adjustment per patient size (includes targeted exams where dose is matched to clinical indication); or iterative reconstruction. Contrast material: ISOVUE 370; Contrast volume: 75 ml; Contrast route: INTRAVENOUS (IV); COMPARISON: CT Head without contrast 09/07/2018 11:44 AM FINDINGS: Brain: Slightly hyperdense flat extra-axial lesions are again noted along the bilateral frontoparietal convexities. These appear less pronounced or smaller than on the previous exams. Additionally, a small nodular lesion along the mid/posterior falx has also significantly decreased in size. There is hyperdensity and prominence in the region of the confluence of the straight sinus and internal cerebral veins. This also appears decreased in size. The findings are nonspecific, but could represent small meningiomas. Clinical correlation for interval treatment is recommended. Minor nodular thickening/enhancement along the tentorium could represent additional small meningiomas. There is no acute intracranial hemorrhage, cerebral edema, mass effect, or midline shift. Cerebral ventricles: No hydrocephalus. Bones/joints: Unremarkable. No acute fracture. Paranasal sinuses: There is no acute sinusitis. Mastoid air cells: Visualized mastoid air cells are well aerated. Orbital cavity: Unremarkable as visualized. Soft tissues: Unremarkable. IMPRESSION: 1. No acute abnormality. 2. Chronic findings as discussed above. Electronically signed by: Pankaj Clayton On 04/21/2020 17:39:35 PM
== END ==
LOC: M RAD 16:03
PROVIDERS: ATTEND Neurological Surgery
DX: D32.9 Benign neoplasm of meninges, unspecified (principal)
CPT/HCPCS: 70470; Q9967

== ENCOUNTER → 2020-04-29 | Outpatient (CLI) | payer MEDICARE, OTHER ==
[~2020-04-29] MED LIST changes: -ISOVUE-370 76% 100ML VIAL As Ordered ONE
[2020-04-29 09:49] LABS: HEMATOCRIT 36.2 % (36.0-47.0); HEMOGLOBIN 10.2 g/dl (12.0-15.5); MEAN CORPUSCULAR HEMOGLOBIN 22.2 pg (27.0-33.0); MEAN CORPUSCULAR HGB CONC 28.2 g/dl (32.0-36.5); MEAN CORPUSCULAR VOLUME 78.9 fl (80.0-96.0); PLATELET COUNT, AUTOMATED 346 10^3/uL (150-450); RED BLOOD COUNT 4.59 10^6/uL (4.00-5.40); WHITE BLOOD COUNT 6.9 10^3/uL (4.0-10.0)
[2020-04-29 10:10] LABS: CALCIUM LEVEL 9.2 MG/DL (8.5-10.1); CREATININE FOR GFR 1.02 MG/DL (0.55-1.30); GLOMERULAR FILTRATION RATE 59.5 (>51); POTASSIUM SERUM 4.1 MEQ/L (3.5-5.1)
[2020-04-29 11:45] LABS: FOLATE 23.7 NG/ML (>5.4)
== END ==
LOC: M LAB 08:52
PROVIDERS: ATTEND Nurse Practitioner Family
DX: E55.9 Vitamin D deficiency, unspecified (principal); E50.9 Vitamin A deficiency, unspecified; G40.909 Epilepsy, unspecified, not intractable, without status epilepticus; I89.0 Lymphedema, not elsewhere classified; Z98.84 Bariatric surgery status; Z79.899 Other long term (current) drug therapy

== ENCOUNTER → 2021-04-11 | Outpatient (CLI) | payer MEDICARE, OTHER ==
[~2021-04-11] MED LIST changes: +POTA-151 PO; -POTA20TA6 PO
[2021-04-11 18:01] LABS: HEMATOCRIT 41.9 % (36.0-47.0); MEAN CORPUSCULAR HEMOGLOBIN 30.4 pg (27.0-33.0); MEAN CORPUSCULAR VOLUME 97.9 fl (80.0-96.0); PLATELET COUNT, AUTOMATED 268 10^3/uL (150-450); RED BLOOD COUNT 4.28 10^6/uL (4.00-5.40); WHITE BLOOD COUNT 6.6 10^3/uL (4.0-10.0)
[2021-04-11 18:39] LABS: ALBUMIN 3.8 GM/DL (3.2-5.2); ALT/SGPT 20 U/L (12-78); BILIRUBIN,TOTAL 0.4 MG/DL (0.2-1.0); BLOOD UREA NITROGEN 17 MG/DL (7-18); CALCIUM LEVEL 9.4 MG/DL (8.5-10.1); CARBON DIOXIDE LEVEL 34 MEQ/L (21-32); CHLORIDE LEVEL 103 MEQ/L (98-107); CHOLESTEROL LEVEL 186 MG/DL (<200); CHOLESTEROL RISK RATIO 2.415 (<5); CREATININE FOR GFR 0.82 MG/DL (0.55-1.30); FERRITIN 24 NG/ML (8-252); FREE T4 1.15 NG/DL (0.76-1.46); GLOMERULAR FILTRATION RATE > 60.0 (>51); GLUCOSE, FASTING 99 MG/DL (70-100); HDL CHOLESTEROL 77 MG/DL (>40); IRON (FE) 41 UG/DL (50-170); LDL CHOLESTEROL 91 MG/DL (<100); NON-HDL-C 109 MG/DL; POTASSIUM SERUM 4.4 MEQ/L (3.5-5.1); SODIUM LEVEL 140 MEQ/L (136-145); TOTAL 25(OH) VITAMIN D 49.3 NG/ML (30.0-100.0); TOTAL PROTEIN 7.4 GM/DL (6.4-8.2); TRIGLYCERIDES LEVEL 88 MG/DL (<150)
== END ==
LOC: M PLALAB 14:39
PROVIDERS: ATTEND Physician Assistant Medical
DX: E03.9 Hypothyroidism, unspecified (principal); I89.0 Lymphedema, not elsewhere classified; D50.8 Other iron deficiency anemias; Z98.84 Bariatric surgery status; G40.909 Epilepsy, unspecified, not intractable, without status epilepticus; Z79.899 Other long term (current) drug therapy; E66.01 Morbid (severe) obesity due to excess calories; Z68.44 Body mass index [BMI] 60.0-69.9, adult; B37.89 Other sites of candidiasis; Z74.09 Other reduced mobility; Z95.0 Presence of cardiac pacemaker; K90.89 Other intestinal malabsorption; E50.9 Vitamin A deficiency, unspecified; E55.9 Vitamin D deficiency, unspecified; H54.7 Unspecified visual loss
CPT/HCPCS: 36415; 80053; 80061; 80180; 82306; 82728; 83540; 84439; 84443; 85027; G0463

== ENCOUNTER → 2021-04-27 | Outpatient (CLI) | payer MEDICARE ==
[~2021-04-27] MED LIST changes: +ISOVUE-370 76% 100ML VIAL As Ordered ONE; -POTA-151 PO; +POTA20TA6 PO
--- NOTE | 2021-04-27 16:41 | REPVR ---
PROCEDURE INFORMATION: Exam: CT Head Without And With Contrast Exam date and time: 04/27/2021 4:08 PM Age: 60 years old Clinical indication: Other: Benign neoplasm of meninges, unspecified TECHNIQUE: Imaging protocol: Computed tomography of the head without and with intravenous contrast. Radiation optimization: All CT scans at this facility use at least one of these dose optimization techniques: automated exposure control; mA and/or kV adjustment per patient size (includes targeted exams where dose is matched to clinical indication); or iterative reconstruction. Contrast material: ISOVUE 370; Contrast volume: 75 ml; Contrast route: INTRAVENOUS (IV); COMPARISON: CT Head W/O FOLL BY WITH CONTR 04/21/2020 4:33 PM FINDINGS: Brain: Previously described parafalcine hyperdensities are unchanged, meningioma per history. There is no acute intracranial hemorrhage or abnormal extra-axial fluid collection identified. There is no intracranial mass effect or shift of midline structures. The norton-white differentiation is preserved throughout. Cerebral ventricles: There is no sulcal or ventricular effacement. The basilar cisterns are open. No hydrocephalus. Paranasal sinuses: The visualized sinuses are unremarkable. Mastoid air cells: There is no mastoid effusion detected. Bones/joints: No calvarial fracture or destructive osseous lesions are seen. IMPRESSION: 1. Previously described parafalcine hyperdensities are unchanged, meningioma per history. 2. No acute intracranial pathology identified by CT. Electronically signed by: Radha Graham On 04/27/2021 16:40:48 PM
== END ==
LOC: M RAD 15:29
PROVIDERS: ATTEND Neurological Surgery
DX: D32.9 Benign neoplasm of meninges, unspecified (principal)
CPT/HCPCS: 70470; Q9967

== ENCOUNTER → 2021-07-21 | Outpatient (CLI) | payer MEDICARE, OTHER ==
[~2021-07-21] MED LIST changes: -ISOVUE-370 76% 100ML VIAL As Ordered ONE; +OMEP-173 PO; -OMEP-218 PO; +POTA-151 PO; -POTA20TA6 PO
[2021-07-21 17:58] LABS: FREE T4 1.05 NG/DL (0.76-1.46); THYROID STIMULATING HORMONE 2.32 uIU/ML (0.358-3.740)
== END ==
LOC: M PLALAB 12:28
PROVIDERS: ATTEND Physician Assistant Medical
DX: E03.9 Hypothyroidism, unspecified (principal); Z98.84 Bariatric surgery status

== ENCOUNTER → 2021-08-02 | Outpatient (CLI) | payer MEDICARE, OTHER | LOC: M WHC 11:12 | PROVIDERS: ATTEND Physician Assistant Medical | DX: Z12.31 Encounter for screening mammogram for malignant neoplasm of breast (principal); Z80.3 Family history of malignant neoplasm of breast; H54.8 Legal blindness, as defined in USA; Z95.0 Presence of cardiac pacemaker ==

== ENCOUNTER → 2022-06-22 | Outpatient (CLI) | payer MEDICARE, OTHER ==
[~2022-06-22] MED LIST changes: +B-1250TA2 PO; +ERGO500029 PO; +IRON65TA2 PO; +NYST-13 TOP; -NYST10CR TOP; +VITA500C19 PO; +VITA80004 PO
== END ==
LOC: M LABSMTC 09:39
PROVIDERS: ATTEND Anesthesiology
DX: Z01.818 Encounter for other preprocedural examination (principal); Z11.52 Encounter for screening for COVID-19

== ENCOUNTER 2022-06-27 08:37 | Day surgery (SDC) | payer MEDICARE, OTHER ==
[~2022-06-27] VITALS: Ht 157.5 cm; Wt 150.6 kg
[~2022-06-27 08:37] MED LIST changes: +LIDOCAINE 2% 100MG/5ML SDV (FOR ANES.) As Ordered ONE; +NS 1,000 ML IV ONE; +propofoL 200 MG/20 ML VIAL As Ordered ONE
[2022-06-27 10:00] VITALS: BP 145/83
== END 2022-06-27 10:22 | disposition home or self-care (01) ==
LOC: M OPP 08:37
PROVIDERS: ATTEND Internal Medicine Gastroenterology
DX: Z86.010 Personal history of colon polyps (principal); K57.30 Diverticulosis of large intestine without perforation or abscess without bleeding; K64.8 Other hemorrhoids; G47.33 Obstructive sleep apnea (adult) (pediatric); Z79.899 Other long term (current) drug therapy; Z88.1 Allergy status to other antibiotic agents; Z88.2 Allergy status to sulfonamides; Z99.89 Dependence on other enabling machines and devices; Z95.0 Presence of cardiac pacemaker; Z98.84 Bariatric surgery status

== ENCOUNTER → 2022-12-27 | Outpatient (CLI) | payer MEDICARE, OTHER ==
[~2022-12-27] MED LIST changes: -LIDOCAINE 2% 100MG/5ML SDV (FOR ANES.) As Ordered ONE; -NS 1,000 ML IV ONE; -propofoL 200 MG/20 ML VIAL As Ordered ONE
[2022-12-27 15:09] LABS: BASO % 0.4 % (0.0-1.0); EOS # 0.1 10^3/uL (0.0-0.5); EOS % 1.6 % (0.0-3.0); HEMATOCRIT 41.4 % (36.0-47.0); HEMOGLOBIN 12.9 g/dl (12.0-15.5); LYMPH # 1.5 10^3/uL (1.5-5.0); LYMPH % 21.3 % (24.0-44.0); MEAN CORPUSCULAR HEMOGLOBIN 31.6 pg (27.0-33.0); MEAN CORPUSCULAR HGB CONC 31.2 g/dl (32.0-36.5); MEAN CORPUSCULAR VOLUME 101.5 fl (80.0-96.0); MONO # 0.5 10^3/uL (0.0-0.8); NEUTROPHILS # 4.9 10^3/uL (1.5-8.5); NEUTROPHILS % 69.4 % (36.0-66.0); PLATELET COUNT, AUTOMATED 261 10^3/uL (150-450); RED BLOOD COUNT 4.08 10^6/uL (4.00-5.40); WHITE BLOOD COUNT 7.1 10^3/uL (4.0-10.0)
[2022-12-27 15:16] LABS: ALBUMIN 4.2 G/DL (3.2-5.2); ALKALINE PHOSPHATASE 97 U/L (46-116); ALT/SGPT 14 U/L (7.0-40); AST/SGOT 20 U/L (<34); BILIRUBIN,TOTAL 0.5 MG/DL (0.3-1.2); BLOOD UREA NITROGEN 21 MG/DL (9-23); CALCIUM LEVEL 9.5 MG/DL (8.3-10.6); CARBON DIOXIDE LEVEL 30 MMOL/L (20-31); CHLORIDE LEVEL 104 MMOL/L (98-107); CREATININE FOR GFR 0.83 MG/DL (0.55-1.30); GLOMERULAR FILTRATION RATE > 60.0 (>45); GLUCOSE, FASTING 87 MG/DL (74-106); POTASSIUM SERUM 4.5 MMOL/L (3.5-5.1); PTH INTACT 148.7 PG/ML (18.5-88.0); SODIUM LEVEL 140 MMOL/L (136-145); TOTAL PROTEIN 7.2 G/DL (5.7-8.2)
[2022-12-27 15:17] LABS: FERRITIN 66.2 NG/ML (7.3-270.7); TOTAL 25(OH) VITAMIN D 45.2 NG/ML (20.0-100.0)
[2022-12-27 15:18] LABS: HEPATITIS B SURFACE ANTIBODY NEGATIVE (POSITIVE)
[2022-12-27 15:23] LABS: INR 1.04; PROTHROMBIN TIME 13.3 SECONDS (12.5-14.5)
[2022-12-27 15:24] LABS: PARTIAL THROMBOPLASTIN TIME 29.8 SECONDS (24.8-34.2)
[2022-12-27 15:51] LABS: HEPATITIS C VIRUS ABY INDEX 0.12 INDEX (<0.8)
[2023-01-01 19:07] LABS: AFP TUMOR TOTAL 1.4 ng/mL (0.0-9.2); HEPATITIS A IgG TOTAL Positive (Negative); LEVETIRACETAM (KEPPRA) 36.4 ug/mL (10.0-40.0)
== END ==
LOC: M PLALAB 12:45
PROVIDERS: ATTEND Physician Assistant Medical
DX: E55.9 Vitamin D deficiency, unspecified (principal); I44.2 Atrioventricular block, complete; G40.909 Epilepsy, unspecified, not intractable, without status epilepticus; E50.9 Vitamin A deficiency, unspecified; K76.0 Fatty (change of) liver, not elsewhere classified; I50.32 Chronic diastolic (congestive) heart failure; D50.9 Iron deficiency anemia, unspecified

== ENCOUNTER → 2023-03-14 | Outpatient (CLI) | payer MEDICARE, OTHER | LOC: M SLEEP HO 11:34 | PROVIDERS: ATTEND Physician Assistant Medical | DX: G47.33 Obstructive sleep apnea (adult) (pediatric) (principal) ==

== ENCOUNTER → 2024-01-02 | Outpatient (CLI) | payer MEDICARE, OTHER ==
[2024-01-02 14:58] LABS: BASO % 0.7 % (0.0-1.0); EOS # 0.1 10^3/uL (0.0-0.5); EOS % 1.3 % (0.0-3.0); HEMATOCRIT 40.1 % (36.0-47.0); HEMOGLOBIN 12.4 g/dl (12.0-15.5); LYMPH # 1.2 10^3/uL (1.5-5.0); LYMPH % 18.8 % (24.0-44.0); MEAN CORPUSCULAR HEMOGLOBIN 30.3 pg (27.0-33.0); MEAN CORPUSCULAR HGB CONC 30.9 g/dl (32.0-36.5); MONO # 0.5 10^3/uL (0.0-0.8); NEUTROPHILS # 4.4 10^3/uL (1.5-8.5); PLATELET COUNT, AUTOMATED 229 10^3/uL (150-450); RED BLOOD COUNT 4.09 10^6/uL (4.00-5.40); WHITE BLOOD COUNT 6.1 10^3/uL (4.0-10.0)
[2024-01-02 15:04] LABS: HEMOGLOBIN A1c 5.4 % (4.0-6.0)
[2024-01-02 15:24] LABS: ALBUMIN 3.9 G/DL (3.2-5.2); ALKALINE PHOSPHATASE 96 U/L (46-116); ALT/SGPT 15 U/L (7.0-40); AST/SGOT 18 U/L (<34); BILIRUBIN,TOTAL 0.4 MG/DL (0.3-1.2); BLOOD UREA NITROGEN 24 MG/DL (9-23); CALCIUM LEVEL 9.8 MG/DL (8.3-10.6); CARBON DIOXIDE LEVEL 34 MMOL/L (20-31); CHLORIDE LEVEL 106 MMOL/L (98-107); CHOLESTEROL LEVEL 165 MG/DL (<200); CHOLESTEROL RISK RATIO 2.57 (<5); CREATININE FOR GFR 0.77 MG/DL (0.55-1.30); GLOMERULAR FILTRATION RATE > 60.0 (>45); GLUCOSE, FASTING 89 MG/DL (74-106); HDL CHOLESTEROL 64.2 MG/DL (>40); IRON (FE) 42 UG/DL (50-170); LDL CHOLESTEROL 77.6 MG/DL (<100); NON-HDL-C 100.8 MG/DL; POTASSIUM SERUM 4.6 MMOL/L (3.5-5.1); SODIUM LEVEL 141 MMOL/L (136-145); TRIGLYCERIDES LEVEL 116 MG/DL (<150)
[2024-01-02 15:25] LABS: FERRITIN 20.4 NG/ML (7.3-270.7)
[2024-01-02 15:26] LABS: TOTAL 25(OH) VITAMIN D 54.2 NG/ML (20.0-100.0)
== END ==
LOC: M PLALAB 12:29
PROVIDERS: ATTEND Physician Assistant Medical
DX: R73.01 Impaired fasting glucose (principal); D50.9 Iron deficiency anemia, unspecified; E78.2 Mixed hyperlipidemia; K76.0 Fatty (change of) liver, not elsewhere classified; E55.9 Vitamin D deficiency, unspecified

== ENCOUNTER → 2024-11-25 | Outpatient (CLI) | payer MEDICARE, MEDICAID ==
[~2024-11-25] MED LIST changes: +AMOX875T2 PO; -NYST-13 TOP; +NYST0.1C TOP; -VITA500C19 PO; +VITA500C22 PO
== END ==
LOC: M SLEEP HO 14:46
PROVIDERS: ATTEND Physician Assistant Medical
DX: G47.33 Obstructive sleep apnea (adult) (pediatric) (principal)

== ENCOUNTER → 2024-12-11 | Outpatient (CLI) | payer MEDICARE, MEDICAID ==
[~2024-12-11] MED LIST changes: +ACETAMINOPHEN 650MG PO PRIOR TO INFUSION PO ONE; +ALBUTEROL SULFATE 2.5 MG/0.5 ML INH CONCENTRATE NEB SOLN INH PRN; +EPINEPHrine INJ 1 MG/ML 1ML AMP IM PRN; +IRON SUCROSE 300 MG in NS 250 ML IV ONE; +diphenhydrAMINE 25MG PO PRIOR TO INFUSION PO ONE; +diphenhydrAMINE 50 MG/ML VIAL IV PRN
[2024-12-11 13:00] VITALS: BP 159/79; O2SAT 97
[2024-12-11] MEDS: IRON SUCROSE 300 MG in NS 250 ML IV ONE (13:14)
== END ==
LOC: M INFU 11-20 09:45
PROVIDERS: ATTEND Physician Assistant Medical
DX: D50.9 Iron deficiency anemia, unspecified (principal); Z88.2 Allergy status to sulfonamides
CPT/HCPCS: 96365; 96366; J1756

== ENCOUNTER 2024-12-18 11:10 | Outpatient (CLI) | payer MEDICARE, MEDICAID ==
[~2024-12-18] VITALS: Ht 157.5 cm; Wt 146.8 kg
[~2024-12-18 11:10] MED LIST changes: -ACETAMINOPHEN 650MG PO PRIOR TO INFUSION PO ONE; -IRON SUCROSE 300 MG in NS 250 ML IV ONE; -diphenhydrAMINE 25MG PO PRIOR TO INFUSION PO ONE
[2024-12-18 11:15] VITALS: BP 124/77; O2SAT 96
[2024-12-18] MEDS: IRON SUCROSE 300 MG in NS 250 ML OVER 90 MIN. IV ONE (11:37)
[2024-12-18] MEDS: ACETAMINOPHEN 650 MG PO ONE (11:38)
[2024-12-18 13:10] VITALS: BP 132/78; O2SAT 98
== END 2024-12-18 13:20 ==
LOC: M INFU 11:10
PROVIDERS: ATTEND Physician Assistant Medical
DX: D50.9 Iron deficiency anemia, unspecified (principal); Z88.2 Allergy status to sulfonamides
CPT/HCPCS: 96365; 96366; J1756